=== PATIENT | male | born 1985 | race Caucasian/White ===

== ENCOUNTER 2018-01-05 08:32 | Inpatient (IN) | payer MEDICAID ==
[2018-01-05] VITALS (10 sets, daily range): BP systolic 94–114; BP diastolic 60–74; Ht 162.6 cm; Wt 62.1 kg
[~2018-01-05] VITALS: Ht 162.6 cm; Wt 62.1 kg
[2018-01-05] MEDS ORDERED: NOVOLOG100 U/M1 SC (08:52)
[2018-01-05] MEDS ORDERED: 70/30 INSULIN (08:53)
[2018-01-05] MEDS ORDERED: KLONOPIN0.5 MG PO (08:53)
[2018-01-05] MEDS ORDERED: ADDERALL 5 MG TA5 M1 PO (08:53)
[2018-01-05 09:15] LABS: BASOPHILS 0.8 % (0-2); EOSINOPHILS 1.8 % (0-7); HEMATOCRIT 51.5 % (42.0-54.0); HEMOGLOBIN 17.6 g/dL (13.5-17.5); IMMATURE GRANULOCYTES 1.8 % (0-5); MCH 31.3 pg (26.0-34.0); MCHC 34.2 g/dL (31.0-37.0); MCV 91.6 fL (80.0-100.0); MEAN PLATELET VOLUME 11.4 fL (7.4-10.4); MONOCYTES 9.5 % (2-11); NEUTROPHILS 52.1 % (40-80); RBC 5.62 10x6/uL (4.20-6.10); RDW 13.4 % (11.5-14.5); WBC 6.1 10x3/uL (4.8-10.8)
[2018-01-05 09:17] LABS: PLATELET COUNT 280 10x3/uL (130-400)
[2018-01-05 09:32] LABS: KETONE - SERUM SMALL mg/dL (NEGATIVE)
[2018-01-05 09:32] LABS: APPEARANCE CLEAR (CLEAR); BILIRUBIN NEGATIVE (NEGATIVE); COLOR STRAW (YELLOW); GLUCOSE 1000 mg/dL (NEGATIVE); KETONE LARGE mg/dL (NEGATIVE); NITRITE NEGATIVE (NEGATIVE); PROTEIN NEGATIVE (NEGATIVE); UROBILINOGEN NORMAL (NORMAL)
[2018-01-05 09:36] LABS: ALBUMIN 3.8 g/dL (3.4-5.0); ALKALINE PHOSPHATASE 131 U/L (46-116); ALT (SGPT) 28 U/L (10-68); CALC OSMOLALITY 282 mosm/kg (275-300); CALCIUM 8.6 mg/dL (8.5-10.1); CHLORIDE - SERUM 97 mmol/L (98-107); CREATININE - SERUM 1.5 mg/dL (0.6-1.3); GLUCOSE 348 mg/dL (74-106); POTASSIUM - SERUM 4.3 mmol/L (3.5-5.1); SODIUM 133 mmol/L (136-145); UREA NITROGEN 20 mg/dL (7-18); eGFR NON AFRICAN AMERICAN 58 mL/min (90-120)
[2018-01-05 09:42] LABS: UDS - AMPHET NEGATIVE QUAL (NEGATIVE); UDS - BARB NEGATIVE QUAL (NEGATIVE); UDS - BENZO NEGATIVE QUAL (NEGATIVE); UDS - COCAINE NEGATIVE QUAL (NEGATIVE); UDS - OPIATE NEGATIVE QUAL (NEGATIVE); UDS - PCP NEGATIVE QUAL (NEGATIVE); UDS - THC NEGATIVE QUAL (NEGATIVE)
[2018-01-05 14:22] LABS: CALCIUM 7.2 mg/dL (8.5-10.1); CHLORIDE - SERUM 105 mmol/L (98-107); SODIUM 136 mmol/L (136-145); UREA NITROGEN 16 mg/dL (7-18)
[2018-01-05 14:24] LABS: CALC OSMOLALITY 280 mosm/kg (275-300); CARBON DIOXIDE 23.3 mmol/L (21.0-32.0); GLUCOSE 241 mg/dL (74-106); POTASSIUM - SERUM 3.6 mmol/L (3.5-5.1); eGFR NON AFRICAN AMERICAN > 90 mL/min (90-120)
[2018-01-06] VITALS (11 sets, daily range): BP systolic 93–110; BP diastolic 61–77
== END 2018-01-06 12:57 | disposition home or self-care (01) | DRG 638 ==
LOC: D.ER 08:32 → D.EDHOLD 10:42 → D.ICU 11:03
PROVIDERS: Family Medicine; Internal Medicine Nephrology
DX: E10.10 Type 1 diabetes mellitus with ketoacidosis without coma (principal); N17.9 Acute kidney failure, unspecified; E87.1 Hypo-osmolality and hyponatremia; F90.9 Attention-deficit hyperactivity disorder, unspecified type; Z91.19 Patient's noncompliance with other medical treatment and regimen

== ENCOUNTER 2018-05-19 17:34 | Inpatient (IN) | payer MEDICAID ==
[~2018-05-19] VITALS: Ht 162.6 cm; Wt 59.0 kg
[~2018-05-19 17:34] MED LIST: 70/30 INSULIN; ADDERALL 5 MG TA5 M1 PO; KLONOPIN0.5 MG PO; NOVOLOG100 U/M1 SC
[2018-05-19 18:23] VITALS: BP 130/85
[2018-05-19 18:27] LABS: BASOPHILS 0.5 % (0-2); EOSINOPHILS 0 % (0-7); HEMATOCRIT 44.9 % (42.0-54.0); HEMOGLOBIN 15.6 g/dL (13.5-17.5); IMMATURE GRANULOCYTES 2.3 % (0-5); LYMPHOCYTES 8.4 % (15-50); MCH 30.7 pg (26.0-34.0); MCHC 34.7 g/dL (31.0-37.0); MCV 88.4 fL (80.0-100.0); MEAN PLATELET VOLUME 10.8 fL (7.4-10.4); MONOCYTES 3.1 % (2-11); NEUTROPHILS 85.7 % (40-80); RBC 5.08 10x6/uL (4.20-6.10); RDW 13.6 % (11.5-14.5); WBC 19.3 10x3/uL (4.8-10.8)
[2018-05-19 18:30] LABS: PLATELET COUNT 679 10x3/uL (130-400)
[2018-05-19 18:43] LABS: KETONE - SERUM LARGE mg/dL (NEGATIVE)
[2018-05-19 18:45] VITALS: BP 140/97
[2018-05-19 18:45] LABS: ALBUMIN 3.9 g/dL (3.4-5.0); ALKALINE PHOSPHATASE 191 U/L (46-116); ALT (SGPT) 104 U/L (10-68); BILIRUBIN - TOTAL 1.04 mg/dL (0.2-1.3); CALC OSMOLALITY 282 mosm/kg (275-300); CALCIUM 9.7 mg/dL (8.5-10.1); CARBON DIOXIDE 11.9 mmol/L (21.0-32.0); CHLORIDE - SERUM 89 mmol/L (98-107); CREATINE KINASE 27 UL (21-232); CREATININE - SERUM 1.8 mg/dL (0.6-1.3); LIPASE 50 U/L (73-393); POTASSIUM - SERUM 4.6 mmol/L (3.5-5.1); PRO BNP 105 pg/mL (0-125); PROTEIN - SERUM 8.8 g/dL (6.4-8.2); SODIUM 131 mmol/L (136-145); UREA NITROGEN 20 mg/dL (7-18); eGFR NON AFRICAN AMERICAN 47 mL/min (90-120)
[2018-05-19 18:48] LABS: GLUCOSE 407 mg/dL (74-106)
[2018-05-19 19:00] VITALS: BP 139/88
[2018-05-19 19:45] VITALS: BP 133/78
[2018-05-19 20:28] LABS: APPEARANCE CLEAR (CLEAR); BILIRUBIN NEGATIVE (NEGATIVE); COLOR YELLOW (YELLOW); GLUCOSE 1000 mg/dL (NEGATIVE); KETONE LARGE mg/dL (NEGATIVE); NITRITE NEGATIVE (NEGATIVE); PROTEIN TRACE mg/dL (NEGATIVE); UROBILINOGEN NORMAL (NORMAL)
[2018-05-19 20:30] LABS: BACTERIA FEW /hpf (NONE SEEN); RED CELLS - URINE NONE SEEN /hpf (0-5); WHITE CELLS - URINE NSEEN /hpf (0-5)
[2018-05-19 20:47] LABS: UDS - AMPHET NEGATIVE QUAL (NEGATIVE); UDS - BARB NEGATIVE QUAL (NEGATIVE); UDS - BENZO NEGATIVE QUAL (NEGATIVE); UDS - COCAINE NEGATIVE QUAL (NEGATIVE); UDS - OPIATE NEGATIVE QUAL (NEGATIVE); UDS - PCP NEGATIVE QUAL (NEGATIVE); UDS - THC NEGATIVE QUAL (NEGATIVE)
[2018-05-20] VITALS (11 sets, daily range): BP systolic 104–130; BP diastolic 54–81; BMI 22.3
--- NOTE | 2018-05-20 07:15 | NUR ---
REPORT HANDED OFF FROM PETE TURPIN. PT STABLE, CALL LIGHT WITHIN REACH, DENIES NEEDS, WILL CONTINUE TO MONITOR.
[2018-05-20 07:55] LABS: BASOPHILS 0.4 % (0-2); EOSINOPHILS 0.1 % (0-7); IMMATURE GRANULOCYTES 1.6 % (0-5); LYMPHOCYTES 16.9 % (15-50); MCH 30.6 pg (26.0-34.0); MCHC 34.6 g/dL (31.0-37.0); MCV 88.6 fL (80.0-100.0); MEAN PLATELET VOLUME 10.4 fL (7.4-10.4); MONOCYTES 6.4 % (2-11); NEUTROPHILS 74.6 % (40-80); RDW 13.8 % (11.5-14.5); WBC 17.7 10x3/uL (4.8-10.8)
[2018-05-20 08:25] LABS: HEMATOCRIT 34.1 % (42.0-54.0); HEMOGLOBIN 11.8 g/dL (13.5-17.5); PLATELET COUNT 519 10x3/uL (130-400); RBC 3.85 10x6/uL (4.20-6.10)
--- NOTE | 2018-05-20 08:26 | NUR ---
PT RESTING IN ROOM. RISE AND FALL OF CHEST NOTED. VS STABLE AND CONSISTANT WITH PT TREND SINCE ARRIVAL. CALL LIGHT WITHIN REACH, WILL CONTINUE TO MONITOR.
[2018-05-20 08:35] LABS: BILIRUBIN - TOTAL 0.7 mg/dL (0.2-1.3); CALCIUM 7.9 mg/dL (8.5-10.1)
[2018-05-20 08:37] LABS: ALBUMIN 2.6 g/dL (3.4-5.0); ANION GAP 19.2 mmol/L (8-16); CARBON DIOXIDE 17.3 mmol/L (21.0-32.0); CREATININE - SERUM 1.3 mg/dL (0.6-1.3); POTASSIUM - SERUM 3.5 mmol/L (3.5-5.1); PROTEIN - SERUM 6.1 g/dL (6.4-8.2)
--- NOTE | 2018-05-20 09:20 | NUR ---
PT STABLE, CALL LIGHT WITHIN REACH, URINAL PROVIDED, DENIES OTHER NEEDS WILL CONTINUE TO MONITOR.
--- NOTE | 2018-05-20 10:02 | NUR ---
POTASSIUM INFUSION COMPLETE AT THIS TIME. PT STABLE, CALL LIGHT WITHIN REACH, DENIES NEEDS WILL CONTINUE TO MONITOR.
[2018-05-20 11:32] LABS: ANION GAP 25.3 mmol/L (8-16); CARBON DIOXIDE 10.9 mmol/L (21.0-32.0)
[2018-05-20 11:33] LABS: POTASSIUM - SERUM 4.2 mmol/L (3.5-5.1)
--- NOTE | 2018-05-20 11:54 | NUR ---
SECOND POTASSIUM INFUSION COMPLETE AT THIS TIME. PT STABLE, CALL LIGHT WITHIN REACH, DENIES NEEDS, WILL CONTINUE TO MONITOR.
--- NOTE | 2018-05-20 13:07 | NUR ---
PT STABLE, CALL LIGHT WITHIN REACH, DENIES, NEEDS, WILL CONTINUE TO MONITOR.
--- NOTE | 2018-05-20 14:13 | NUR ---
PT STABLE, CALL LIGHT WITHIN REACH, DENIES NEEDS, WILL CONTINUE TO MONITOR.
--- NOTE | 2018-05-20 15:45 | NUR ---
PT STABLE, CALL LIGHT WITHIN REACH, DENIES NEEDS, WILL CONTINUE TO MONITOR.
--- NOTE | 2018-05-20 17:47 | NUR ---
PT STABLE, CALL LIGHT WITHIN REACH, DENIES NEEDS, WILL CONTINUE TO MONITOR. FSBS AT 1730 80. INSULIN HELD PER SLIDING SCALE.
--- NOTE | 2018-05-20 19:13 | NUR ---
PT REPORT HANDED OFF TO PETE NEWELL. PT STABLE, WILL CONTINUE TO MONITOR.
--- NOTE | 2018-05-20 19:33 | NUR ---
PATIENT APPEARS TO BE SLEEPING, AWAKES TO VERBAL SITMULI. NO NEEDS NOTED. UPDATED ON PLAN OF CARE AND DELAYS IN CARE. WILL CONTIUE TO MONITOR.
--- NOTE | 2018-05-20 20:59 | NUR ---
FSBS 221
[2018-05-21] VITALS (7 sets, daily range): BP systolic 110–125; BP diastolic 62–84; Ht 162.6 cm; Wt 59.0 kg
[2018-05-21 07:43] LABS: BASOPHILS 1.1 % (0-2); EOSINOPHILS 0.5 % (0-7); HEMATOCRIT 36.5 % (42.0-54.0); HEMOGLOBIN 12.1 g/dL (13.5-17.5); IMMATURE GRANULOCYTES 1.5 % (0-5); LYMPHOCYTES 21.8 % (15-50); MCHC 33.2 g/dL (31.0-37.0); MONOCYTES 4.4 % (2-11); NEUTROPHILS 70.7 % (40-80); PLATELET COUNT 428 10x3/uL (130-400); RBC 4.03 10x6/uL (4.20-6.10)
[2018-05-21 07:51] LABS: MCV 90.6 fL (80.0-100.0); WBC 10.1 10x3/uL (4.8-10.8)
[2018-05-21 07:58] LABS: ALBUMIN 2.5 g/dL (3.4-5.0); ALKALINE PHOSPHATASE 118 U/L (46-116); ALT (SGPT) 54 U/L (10-68); BILIRUBIN - TOTAL 1.31 mg/dL (0.2-1.3); CALCIUM 8.1 mg/dL (8.5-10.1); CHLORIDE - SERUM 100 mmol/L (98-107); CREATININE - SERUM 1.1 mg/dL (0.6-1.3); POTASSIUM - SERUM 3.9 mmol/L (3.5-5.1); PROTEIN - SERUM 5.8 g/dL (6.4-8.2); SODIUM 134 mmol/L (136-145); eGFR NON AFRICAN AMERICAN 83 mL/min (90-120)
--- NOTE | 2018-05-21 08:02 | NUR ---
RCVD PT FROM PM SHIFT. PT AAOX3. HR-RRR, PPP, BREATH SOUNDS CLEAR & UNLABORED X2, BOWEL SOUNDS ACTIVE X4. PIV NOTED TO RT FOREARM C/D/I WITHOUT ERYTHEMA OR EDEMA NOTED TO SITE. NS INFUSING AT 200ML/HR PER ORDERS. AJAY BANDAGE WRAPPED AROUND LT FOREARM. PT REPORTS SURGERY A WEEK AGO AND STATES HAS BEEN TAKING CARE OF IT HIMSELF. WILL NOT ALLOW RN TO UNWRAP OR ASSESS SITE. DR BAKER REPORTS WILL MAKE ROUNDS AT 1200 TO ASSESS IT. PT DENIES FURTHER NEEDS AT THIS TIME. BED LOW, WHEELS LOCKED, CALL LIGHT AND PHONE WITHIN REACH, SIDE RAILS UP X2.
[2018-05-21 08:09] LABS: CALC OSMOLALITY 280 mosm/kg (275-300); GLUCOSE 346 mg/dL (74-106); UREA NITROGEN 10 mg/dL (7-18)
[2018-05-21 08:10] LABS: CARBON DIOXIDE 8.8 mmol/L (21.0-32.0)
--- NOTE | 2018-05-21 10:01 | NUR ---
OPERATING SYSTEMS PROGRAMMER ON UNIT. ADV TECH OF NEEDS FOR MEDICATION DUE.
--- NOTE | 2018-05-21 10:15 | NUR ---
CURRENT NS INFUSION COMPLETE. OLD BAG DOWN, NEW BAG UP TO PRESENT TUBING SET TO INFUSE AT 200ML/HR
--- NOTE | 2018-05-21 10:27 | NUR ---
CURRENT NS INFUSION COMPLETE. OLD BAG DOWN, NEW BAG UP TO PRESENT TUBING, SET TO INFUSE AT 200ML/HR VIA ALARIS PUMP. PT DENIES NEED AT THIS TIME.
--- NOTE | 2018-05-21 11:30 | NUR ---
PHARMACY CALLED. ADV ON NEEDS FOR HUMULIN THAT WAS DUE AT 1100.
--- NOTE | 2018-05-21 11:36 | NUR ---
BICARB DRIP SET TO INFUSE PER ORDERS. SEE EMAR FOR ADMINISTRATION. PT LYING ON RT SIDE. DENIES NEEDS AT THIS TIME.
--- NOTE | 2018-05-21 11:36 | NUR ---
SODIUM BICARB HUNG AND SET TO INFUSE PER ORDERS. SEE EMAR FOR ADMINISTRATION. PT DENIES FURTHER NEEDS AT THIS TIME.
--- NOTE | 2018-05-21 13:00 | NUR ---
CREW DIRECTOR ON UNIT. INQUIRED ABOUT HUMULIN AND OTHER MEDS NEEDED. CREW DIRECTOR TAKES LIST OF MEDICATIONS WITH HER.
--- NOTE | 2018-05-21 13:45 | NUR ---
Eric LINDSEY RN CALLS PHARMACY FOR MEDICATIONS. JOSE WITH PHARMACY WILL CALL WHEN MEDS ARE READY.
--- NOTE | 2018-05-21 13:46 | NUR ---
DR BAKER IN ROOM ASSESSING PT. LT AC WOUND SHOWN TO THIS RN. V/O RCVD FOR NONSTICK DRESSING TO BE PLACED OVER SITE AND A CONSULT FOR WOUND CARE TO BE PLACED.
--- NOTE | 2018-05-21 13:52 | HP ---
PATIENT: STARR GARCIA MEDICAL RECORD: [id number] ACCOUNT: [id number] LOCATION:[facility] : 89 ADMISSION DATE: 05/20/18 PCP: No PCP HISTORY AND PHYSICAL EXAMINATION DATE OF ADMISSION: 05/19/2018 CHIEF COMPLAINT: Nausea, vomiting, and abdominal pain. HISTORY OF PRESENT ILLNESS: This is a 32-year-old type 1 diabetic, diagnosed approximately 10 years ago who presented to the Emergency Department complaining of nausea, vomiting, shortness of breath, and abdominal pain. Symptoms started a couple of days ago. He had a "surgery" on the left forearm at [facility] in [place] recently. The patient states he is homeless or basically staying with his sister right now. He does not have a primary care provider. In the ER, his white count was 19,000, his glucose was 407, his ABG did not show acidosis, his pH was 7.5. He did have large serum ketones. Urine drug screen was negative. He is admitted for hyperglycemia, nausea, vomiting, abdominal pain history, diabetes diagnosed approximately 10 years ago, history of anxiety and possibly ADHD. PAST SURGICAL HISTORY: None. HOME MEDICATIONS: Insulin 70/30, 30 units twice a day; Klonopin 0.5 mg once or twice a day. ALLERGIES: No known drug allergies. HABITS: He smokes. Denies any alcohol or drugs. SOCIAL HISTORY: Again, homeless, living with his sister right now. He does not work. He states he is trying to get disability for his diabetes. FAMILY HISTORY: Unknown. REVIEW OF SYSTEMS: GENERAL: No major weight changes. HEENT: No sinus or allergy problems. RESPIRATORY: No history of asthma or emphysema. CARDIAC: No history of heart trouble. GASTROINTESTINAL: Currently, abdominal pain, but no ongoing problems with diarrhea, constipation or heartburn. GENITOURINARY: No significant problems there. MUSCULOSKELETAL: No significant problems there. NEUROLOGIC: No seizures or migraines. PSYCHIATRIC: Has anxiety. PHYSICAL EXAMINATION: VITAL SIGNS: Temperature 99.7, pulse 101, respirations 14, blood pressure 120/78, O2 sat 98% on room air. GENERAL: He is awake and alert. He states his mouth is very dry. He is very tired. HEENT: Unremarkable. NECK: Supple. HEART: Regular rate and rhythm without murmur. HISTORY AND PHYSICAL [id number] STARR GARCIA LUNGS: Clear. ABDOMEN: Soft, nontender. No guarding, no rebound, no mass. EXTREMITIES: No edema. He has a dressing around the left forearm. LABORATORY DATA: Initially, basic metabolic panel showed sodium 131, potassium 4.6, chloride 89, CO2 11.4, BUN 20, creatinine 1.8, glucose 407, calcium 9.7. Lactic acid 2.7. Liver functions were okay. Lipase 50. ProBNP was fine. CBC with a white count of 19,300, hemoglobin 15.6, hematocrit 49. Serum ketones large. ABG: pH 7.54, pO2 125. Chest x-ray shows nothing acute. Urine drug screen is negative. Urinalysis is okay except 1000 mg/dL of glucose. ASSESSMENT: 1. Hyperglycemia in a type 1 diabetic. 2. Abdominal pain. 3. Nausea and vomiting. PLAN: IV fluids. He has been given insulin in the ER and his sugars are down to 71. His potassium is down to 3.5, we will follow his potassium with electrolytes every couple of hours. Continue IV fluids, monitor his glucose, other tests or procedures as warranted. TRANSINT:[id number] Voice Confirmation ID: [id number] DOCUMENT ID: [id number] MARI BAKER MD at 1352 CC: [id number] DICTATION DATE: 05/20/18 0857 CONGRESSIONAL AIDE: 05/20/18 1035 ADM IN [place] [address] [place] [address]
--- NOTE | 2018-05-21 14:00 | NUR ---
PHARMACY CALLED. OSEI ROWE ON NEEDS FOR MEDICATION/HUMULIN THAT WAS DUE AT 1100. SOLEDAD STATES WILL CHECK AND BRING MEDS OVER.
--- NOTE | 2018-05-21 15:11 | NUR ---
HUMULIN GIVEN PER SLIDING SCALE FOR FSBS OF 412. DR BAKER'S OFFICE CALLED TO REPORT FSBS. NO NEW ORDERS RCVD AT THIS TIME.
--- NOTE | 2018-05-21 16:01 | NUR ---
Pt has open wound (surgical) on left ac. It measures 3cm x 3.5cm x 0.5cm. The wound bed is red and granulation is noted around wound edges. There is no odor detected. No drainage but bleeds easily. He has been doing his own dressing changes using iodoform gauze. Recommend continuing the iodoform. Wound care will continue monitoring.
--- NOTE | 2018-05-21 17:24 | NUR ---
CURRENT BICARB INFUSION COMPLETE. OLD BAG DOWN, NEW BAG UP TO PRESENT TUBING. PT RESTING WITH EYES CLOSED. RESP EVEN & UNLABORED. NO NEEDS VOICED.
--- NOTE | 2018-05-21 18:39 | NUR ---
vancomycin hung and set to infuse per orders. pt requests & receives ice water. no further needs voiced.
--- NOTE | 2018-05-21 19:23 | NUR ---
PM ROUNDS MADE, PT AROUSES TO OPENING OF DOOR, INFORMED PT THAT I WILL BE BACK SHORTLY TO DO ASSESSMENT, PT VERBALIZES UNDERSTANDING, DENIES NEEDS OR PAIN AT THIS TIME, BED IN LOW POSITION, SIDE RAILS X 2, CALL LIGHT IN REACH
--- NOTE | 2018-05-21 20:15 | NUR ---
ASSESSMENT PER FLOW SHEET, VS OBTAINED, IV IN RIGHT FA INTACT WITH NO REDNESS OR EDEMA INFUSING NS WITH BICARB AT 200 ML/HR, SEE EMAR, PT REPORTS FLATUS, NO BM AND VOIDING WITH NO DIFFICULTY, ZOSYN HUNG IVPB PER MD ORDERS, SEE EMAR, PT INQUIRES ABOUT HIS KLONIPIN, STATES "I REALLY NEED TO HAVE THAT BECAUSE I HAVE ANXIETY REALLY BAD", INFORMED PT THAT I WILL CONTACT THE DOCTOR AND SEE WHAT I CAN DO, PT VERBALIZES UNDERSTANDING, STATES "THANK YOU", PT DENIES FURTHER NEEDS OR PAIN AT THIS TIME, BED IN LOW POSITION, SIDE RAILS X 2, CALL LIGHT IN REACH
--- NOTE | 2018-05-21 20:27 | NUR ---
LEFT MESSAGE WITH ANSWERING SERVICE TO HAVE SHOULDER PUNCHER DOCTOR CALL UNIT
--- NOTE | 2018-05-21 20:42 | NUR ---
DR SAUCEDA CALLS UNIT, REPORT OF PT'S HOME MED FOR KLONIPIN, ORDERS RECEIVED, VERIFIED, AND READ BACK
--- NOTE | 2018-05-21 21:22 | NUR ---
OBTAINED FSBS, PT INFORMED OF KLONIPIN ORDER, INFORMED PT THAT I WILL ADM IT SOON I RECEIVE IT FROM THE PHARMACY, PT VERBALIZES UNDERSTANDING
--- NOTE | 2018-05-21 21:30 | NUR ---
ADM INSULIN PER MD ORDERS TO RIGHT ARM, INSULIN VERIFIED PER THIS RN AND EDI HERNANDEZ, RN, SNACK PROVIDED
--- NOTE | 2018-05-21 21:58 | NUR ---
ADM LANA PER MD ORDERS, SEE EMAR
--- NOTE | 2018-05-21 23:58 | NUR ---
PT PEDIATRICIAN LIGHT, PT REQUESTED AND SERVED SUGAR FREE JELLO AND POPSICLE, VS OBTAINED, DENIES FURTHER NEEDS OR PAIN
--- NOTE | 2018-05-22 00:30 | NUR ---
PT REFRESH TECHNICIAN LIGHT, REQUESTED AND SERVED SANDWICH TRAY PER EDI HERNANDEZ RN
--- NOTE | 2018-05-22 01:35 | NUR ---
IV BEEPING, THIS RN TO ROOM, VTBI ADJ, PT DENIES NEEDS
[2018-05-22 03:31] VITALS: BP 111/68
--- NOTE | 2018-05-22 03:31 | NUR ---
PT RESTING WITH EYES CLOSED, AROUSES TO SOFT VERBAL STIMULATION, OBTAINED FSBS
--- NOTE | 2018-05-22 03:36 | NUR ---
THIS RN AND EDI HERNANDEZ, PETE VERIFIED INSULIN, PT REFUSES 12 UNITS, STATES "I ONLY WANT 8 UNITS", ADM 8 UNITS PER PT'S REQUEST, SNACK PROVIDED, PT DENIES FURTHER NEEDS OR PAIN, BED IN LOW POSITION, SIDE RAILS X 2, CALL LIGHT IN REACH
--- NOTE | 2018-05-22 05:20 | NUR ---
NEW BAG OF SOD BICARB HUNG PER MD ORDERS, SEE EMAR, PUMPS CLEARED, PT DENIES NEEDS OR PAIN AT THIS TIME
[2018-05-22 06:38] LABS: BASOPHILS 1.4 % (0-2); EOSINOPHILS 1.2 % (0-7); HEMOGLOBIN 11.2 g/dL (13.5-17.5); IMMATURE GRANULOCYTES 0.7 % (0-5); MCH 30.7 pg (26.0-34.0); MCHC 33.9 g/dL (31.0-37.0); MCV 90.4 fL (80.0-100.0); MEAN PLATELET VOLUME 11.1 fL (7.4-10.4); MONOCYTES 7.2 % (2-11); NEUTROPHILS 66.5 % (40-80); RBC 3.65 10x6/uL (4.20-6.10); RDW 13.6 % (11.5-14.5); WBC 8.3 10x3/uL (4.8-10.8)
[2018-05-22 06:39] LABS: PLATELET COUNT 309 10x3/uL (130-400)
[2018-05-22 06:47] LABS: ALBUMIN 2.2 g/dL (3.4-5.0); ALKALINE PHOSPHATASE 103 U/L (46-116); ALT (SGPT) 42 U/L (10-68); BILIRUBIN - TOTAL 1.29 mg/dL (0.2-1.3); CALCIUM 7.8 mg/dL (8.5-10.1); CHLORIDE - SERUM 100 mmol/L (98-107); CREATININE - SERUM 1.2 mg/dL (0.6-1.3); PROTEIN - SERUM 5.1 g/dL (6.4-8.2); SODIUM 138 mmol/L (136-145); UREA NITROGEN 9 mg/dL (7-18); eGFR NON AFRICAN AMERICAN 75 mL/min (90-120)
[2018-05-22 06:49] LABS: CALC OSMOLALITY 281 mosm/kg (275-300); CARBON DIOXIDE 24.3 mmol/L (21.0-32.0); GLUCOSE 229 mg/dL (74-106); POTASSIUM - SERUM 3.3 mmol/L (3.5-5.1)
--- NOTE | 2018-05-22 08:08 | NUR ---
ZOSYN GIVEN PER ORDERS. SEE EMAR FOR ADMNISTRATION. PT DENIES PAIN OR NEEDS.
[2018-05-22 08:10] VITALS: BP 118/73
--- NOTE | 2018-05-22 08:10 | NUR ---
SHIFT ASSESSMENT COMPLETED AT THIS TIME. PT IS AAOX3, HR-RRR, PPP, BREATH SOUNDS CLEAR & UNLABORED X2, BOWEL SOUNDS ACTIVE X4. PIV TO RT FOREARM PATENT WITH DRESSING C/D/I. WOUND TO LT AC WITH AJAY BANDAGE COVERING IT C/D/I. PT DENIES ANY PAIN OR NEEDS AT THIS TIME. BED LOW, WHEELS LOCKED, CALL LIGHT AND PHONE WITHIN REACH, SIDE RAILS UP X2.
--- NOTE | 2018-05-22 09:30 | NUR ---
SCHEDULED MEDS GIVEN AT THIS TIME. 20 U HUMULIN GIVEN FOR FSBS OF 337. SEE EMAR FOR ADMINISTRATION. ICE WATER PROVIDED PER PT REQUEST. PT DENIES FURTHER NEEDS.
--- NOTE | 2018-05-22 10:24 | NUR ---
PT REQUESTS AND RECEIVES DARLENE CRACKERS, PEANUT BUTTER AND ICE WATER. ALL PROVIDED. PT DENIES FURTHER NEEDS AT THIS TIME.
--- NOTE | 2018-05-22 11:02 | NUR ---
PT AMB IN [place]. DENIES PAIN OR NEEDS.
[2018-05-22 12:15] VITALS: BP 102/69
--- NOTE | 2018-05-22 12:21 | NUR ---
CURRENT SODIUM BICARB INFUSION COMPLETE. OLD BAG DOWN, NEW BAG UP TO PRESENT TUBING AND SET TO INFUSE AT 200ML/HR PER ORDERS. PT DENIES PAIN OR FURTHER NEEDS.
--- NOTE | 2018-05-22 13:39 | NUR ---
DR BAKER ON UNIT. NEW ORDERS RCVD. DR BAKER STATES PT MAY D/C HOME TOMORROW MORNING DEPENDING ON FSBS RESULTS UP UNTIL THEN.
--- NOTE | 2018-05-22 13:51 | NUR ---
ZOSYN SET TO INFUSE PER ORDERS. SEE EMAR FOR ADMINISTRATION. SUGAR FREE JELLO ALSO PROVIDED PER REQUEST. NO FURTHER NEEDS VOICED AT THIS TIME.
--- NOTE | 2018-05-22 14:01 | NUR ---
pharmacy called and informed of need for novalin per md orders.
--- NOTE | 2018-05-22 14:32 | NUR ---
NOVOLIN 30 UNITS GIVEN PER ORDERS IN RT ARM AT THIS TIME. PT TOLERATED WELL. FSBS RESULTED. SUGAR FREE JELLO PROVIDED PER PT REQUEST. NO FURTHER NEEDS VOICED.
--- NOTE | 2018-05-22 16:26 | NUR ---
12 U HUMULIN GIVEN PER ORDERS FOR FSBS OF 205. PT TOLERATED WELL. DRESSING CHANGED ON WOUND AT LT AC. PT TOLERATED WELL. DENIES NEEDS OR C/O AT THIS TIME.
--- NOTE | 2018-05-22 17:25 | NUR ---
PT AMB IN [place] REQUESTING KLONOPIN. ADV PT THAT IT IS ORDERED FOR BEDTIME. PT VERBALIZES UNDERSTANDING AND DENIES FURTHER NEEDS.
--- NOTE | 2018-05-22 18:23 | NUR ---
CURRENT BICARB INFUSION COMPLETE. OLD BAG DOWN, NEW BAG UP TO PRESENT TUBING SET TO INFUSE AT 200ML/HR VIA ALARIS PUMP PER MD ORDERS. SANDWICH TRAY PROVIDED PER REQUEST. NO FURTHER NEEDS VOICED AT THIS TIME.
--- NOTE | 2018-05-22 19:08 | NUR ---
REPORT GIVEN TO ONCOMING SENIOR TRAINING AND DEVELOPMENT REP NURSE.
--- NOTE | 2018-05-22 19:20 | NUR ---
LYING IN BED. ALERT AND ORIENTED X4. RESP EVEN AND NONLABORED. DENIES PAIN. DRSG NOTED TO LT AC IS C/D/I. NO EDEMA NOTED. BICARB INFUSING @ 200 ML/HR IN RT FOREARM WITHOUT DIFF. REPORTS DIARRHEA ONCE TODAY. AMBULATORY. NO DISTRESS. SR ELEVATED X2. CL IN REACH.
[2018-05-22 19:45] VITALS: BP 105/66
--- NOTE | 2018-05-22 23:41 | NUR ---
LYING IN BED. NO DISTRESS. RESP EVEN AND NONLABORED. DENIES PAIN. BICARB DC/D AND STARTED NS @ 30 ML/HR. CL IN REACH.
[2018-05-22 23:49] VITALS: BP 105/66
[2018-05-23 03:55] VITALS: BP 116/72
--- NOTE | 2018-05-23 04:30 | NUR ---
FSBS SPOT CHECKED AT PTS REQUEST AND WAS 176. PT WORRIED ABOUT GLUCOSE DROPPING.
[2018-05-23 07:19] LABS: ALBUMIN 2.3 g/dL (3.4-5.0); ALKALINE PHOSPHATASE 89 U/L (46-116); ALT (SGPT) 42 U/L (10-68); BASOPHILS 3.3 % (0-2); BILIRUBIN - TOTAL 0.35 mg/dL (0.2-1.3); CALCIUM 8.4 mg/dL (8.5-10.1); CHLORIDE - SERUM 105 mmol/L (98-107); EOSINOPHILS 2.1 % (0-7); HEMATOCRIT 34.2 % (42.0-54.0); HEMOGLOBIN 11.7 g/dL (13.5-17.5); IMMATURE GRANULOCYTES 1.2 % (0-5); LYMPHOCYTES 45.9 % (15-50); MCH 30.4 pg (26.0-34.0); MCHC 34.2 g/dL (31.0-37.0); MCV 88.8 fL (80.0-100.0); MEAN PLATELET VOLUME 10.8 fL (7.4-10.4); NEUTROPHILS 40.5 % (40-80); PLATELET COUNT 319 10x3/uL (130-400); PROTEIN - SERUM 5.5 g/dL (6.4-8.2); RBC 3.85 10x6/uL (4.20-6.10); RDW 13.5 % (11.5-14.5); SODIUM 145 mmol/L (136-145); UREA NITROGEN 9 mg/dL (7-18); WBC 5.2 10x3/uL (4.8-10.8)
[2018-05-23 07:26] LABS: CALC OSMOLALITY 286 mosm/kg (275-300); CARBON DIOXIDE 31.2 mmol/L (21.0-32.0); CREATININE - SERUM 0.7 mg/dL (0.6-1.3); GLUCOSE 82 mg/dL (74-106); eGFR NON AFRICAN AMERICAN > 90 mL/min (90-120)
[2018-05-23 07:27] LABS: POTASSIUM - SERUM 2.5 mmol/L (3.5-5.1)
[2018-05-23 07:58] VITALS: BP 106/79
--- NOTE | 2018-05-23 08:11 | NUR ---
AM ASSESSMENT COMPLETED CHARTED ON FLOWSHEET, DENIES PAIN OR DISCOMFORT AT THIS TIME. SITTING UP IN BED PREPARING TO EAT REGULAR DIET. DENIES NEEDS AT THIS TIME. CALL LIGHT AND PHONE IN REACH WITH SIDE RAILS UP X 2. ASKED FOR LIGHTS TO BE TURNED OFF AND DOOR CLOSED.
--- NOTE | 2018-05-23 09:00 | NUR ---
FSBS OF 354, 24UNITS HUMLIN GIVEN PER SLIDING SCALE, GIVEN TO RIGHT UPPER ARM. ALSO GIVEN AM DOSE OF NOVALOG 30UNITS TO LEFT UPPER ARM. TOLERATES WELL
[2018-05-23] MEDS ORDERED: DOXYCYCLINE HY100 M2 PO (09:16)
--- NOTE | 2018-05-23 09:30 | NUR ---
PT PROVIDED WITH CHELO FUENTES AND DARLENE LUJAN PER REQUEST. DENIES PAIN OR DISCOMFORT AND NO OTHER NEEDS AT THIS TIME.
--- NOTE | 2018-05-23 11:12 | NUR ---
CASE MANAGMENT AT BEDSIDE AT THIS TIME.
--- NOTE | 2018-05-23 11:18 | NUR ---
IV DISCONTINUED, CATH REMOVED AND NOTED TO BE INTACT. PER PT HIS RIDE SHOULD BE HERE AROUND 1-130 PM TODAY.
--- NOTE | 2018-05-23 11:22 | MORECARE ---
CASE MANAGEMENT DISCHARGE SUMMARY PATIENT: STARR GARCIA UNIT: [id number] ADM DATE: 05/20/18 AGE: 32 : 87 SEX: M ROOM/BED: D.1218 AUTHOR: WINSTON MORGAN PHYSICIAN: REFERRING PHYSICIAN: MARI BAKER MD DATE OF SERVICE: 05/23/18 Discharge Plan Patient Name: STARR GARCIA Facility: [facility]:[place] : 1985 Planned Disposition: Home Anticipated Discharge Date: 05/23/18 Discharge Date: Expected LOS: 3 Initial Reviewer: [email or web address] Initial Review Date: 05/23/2018 Generated: 05/23/18 12:22 pm Patient Name: STARR GARCIA Page 11622 at 1122 All edits/amendments must be made on the electronic document DICTATION DATE: 05/23/181121 VAC PRESS OPERATOR: PHANI 05/23/18 112 RPT#: [id number] DC DATE: STATUS: ADM IN [facility] [address] [place] [address] END OF REPORT
--- NOTE | 2018-05-23 11:29 | MORECARE ---
CASE MANAGEMENT DISCHARGE SUMMARY PATIENT: STARR GARCIA UNIT: [id number] ADM DATE: 05/20/18 AGE: 32 : 87 SEX: M ROOM/BED: D.1218 AUTHOR: WINSTON MORGAN PHYSICIAN: REFERRING PHYSICIAN: MARI BAKER MD DATE OF SERVICE: 05/23/18 Discharge Plan Patient Name: STARR GARCIA Facility: [facility]:[place] : 1985 Planned Disposition: Home Anticipated Discharge Date: 05/23/18 Discharge Date: Expected LOS: 3 Initial Reviewer: [email or web address] Initial Review Date: 05/23/2018 Generated: 05/23/18 12:29 pm DCPIA - Discharge Planning Initial Assessment Updated by [email or web address]: Marah Boyle on 05/23/18 11:25 am * Is the patient Alert and Oriented? Yes * How many steps to enter\exit or inside your home? 3 w/rail * PCP None Was Dr. Gates. Working on changing to Dr. Morales. * Pharmacy [facility] [address] * Preadmission Environment Home with Family * ADLs Independent * Equipment Glucometer * List name and contact numbers for known caregivers / representatives who currently or will assist patient after discharge: Diana Arriaga, mother, * Verbal permission to speak to the caregivers and representatives has been obtained from the patient. N/A * Community resources currently utilized None * Additional services required to return to the preadmission environment? Yes * Can the patient safely return to the preadmission environment? Yes * Has this patient been hospitalized within the prior 30 days at any hospital? Yes Last DP export: 05/23/18 10:22 a Patient Name: STARR GARCIA Page 13042 at 1129 All edits/amendments must be made on the electronic document DICTATION DATE: 05/23/181128 DIRECTOR OF COMPENSATION: PHANI 05/23/181128 RPT#: [id number] DC DATE: STATUS: ADM IN [facility] [address] [place] [address] END OF REPORT
--- NOTE | 2018-05-23 11:37 | MORECARE ---
CASE MANAGEMENT DISCHARGE SUMMARY PATIENT: STARR GARCIA UNIT: [id number] ADM DATE: 05/20/18 AGE: 32 : 87 SEX: M ROOM/BED: D.1218 AUTHOR: EDDIE,DOC PHYSICIAN: REFERRING PHYSICIAN: MARI BAKER MD DATE OF SERVICE: 05/23/18 Discharge Plan Patient Name: STARR GARCIA Facility: [facility]:[place] : 1985 Planned Disposition: Home Anticipated Discharge Date: 05/23/18 Discharge Date: Expected LOS: 3 Initial Reviewer: [email or web address] Initial Review Date: 05/23/2018 Generated: 05/23/18 12:37 pm Comments DCP- Discharge Planning Updated by [email or web address]: Marah Boyle on 05/23/18 10:[address] Patient Name: STARR GARCIA Admission Status: ER Accout number: [id number] Admission Date: 05-20-2018 : 1985 Admission Diagnosis: Attending: MARI BAKER Current LOS: 3 Anticipated DC Date: 05-23-2018 Planned Disposition: Home Primary Insurance: MEDICAID [place] Discharge Planning Comments: CM met with patient about discharge planning / needs. Patient states he plans to discharge to his sister's house here in [place] (unable to recall address when asked by CM). States his mom, Diana Arriaga ([phone]) will transport him home upon discharge. Denies need for home health or other community resource needs. States home environment is safe. Denies any discharge needs or concerns at this time. CM will continue to follow and assist as needed with discharge planning / needs. Dairy Chemist: Marah Boyle DCPIA - Discharge Planning Initial Assessment Updated by [email or web address]: Marah Boyle on 05/23/18 11:25 am * Is the patient Alert and Oriented? Yes * How many steps to enter\exit or inside your home? 3 w/rail * PCP None Was Dr. Gates. Working on changing to Dr. Morales. * [facility] [address] * Preadmission Environment Home with Family * ADLs Independent * Equipment Glucometer * List name and contact numbers for known caregivers / representatives who currently or will assist patient after discharge: Diana Arriaga, mother, * Verbal permission to speak to the caregivers and representatives has been obtained from the patient. N/A * Community resources currently utilized None * Additional services required to return to the preadmission environment? Yes * Can the patient safely return to the preadmission environment? Yes * Has this patient been hospitalized within the prior 30 days at any hospital? Yes Last DP export: 05/23/18 10:29 a Patient Name: STARR GARCIA Page 35890 at 1137 All edits/amendments must be made on the electronic document DICTATION DATE: 05/23/181136 SOLAR PHOTOVOLTAIC CREW LEAD: PHANI 05/23/181136 RPT#: [id number] DC DATE: STATUS: ADM IN [facility] [address] [place] [address] END OF REPORT
--- NOTE | 2018-05-23 12:45 | NUR ---
VERBAL AND WRITTEN DISCHARGE INSTRUCTIONS GONE OVER AT BEDSIDE. PT STATES UNDERSTANDING AND DENIES ANY QUESTIONS OR CONCERNS.
--- NOTE | 2018-05-23 13:00 | NUR ---
TAKEN TO ER ENTRANCE BY WHEELCHAIR, HOME WITH FAMILY BY PRIVATE CAR.
--- NOTE | 2018-05-23 16:42 | MORECARE ---
CASE MANAGEMENT DISCHARGE SUMMARY PATIENT: STARR GARCIA UNIT: [id number] ADM DATE: 05/20/18 AGE: 32 : 89 SEX: M ROOM/BED: D.1218 AUTHOR: WINSTON MORGAN PHYSICIAN: REFERRING PHYSICIAN: MARI BAKER MD DATE OF SERVICE: 05/23/18 Discharge Plan Patient Name: STARR GARCIA Facility: [facility]:[place] : 1985 Planned Disposition: Home Anticipated Discharge Date: 05/23/18 Discharge Date: 05/23/2018 Expected LOS: 3 Initial Reviewer: [email or web address] Initial Review Date: 05/23/2018 Generated: 05/23/18 5:42 pm Comments DCP- Discharge Planning Updated by [email or web address]: Marah Boyle on 05/23/18 10:[address] Patient Name: STARR GARCIA Admission Status: ER Accout number: [id number] Admission Date: 05-20-2018 : 1985 Admission Diagnosis: Attending: MARI BAKER Current LOS: 3 Anticipated DC Date: 05-23-2018 Planned Disposition: Home Primary Insurance: MEDICAID [place] Discharge Planning Comments: CM met with patient about discharge planning / needs. Patient states he plans to discharge to his sister's house here in [place] (unable to recall address when asked by CM). States his mom, Diana Arriaga ([phone]) will transport him home upon discharge. Denies need for home health or other community resource needs. States home environment is safe. Denies any discharge needs or concerns at this time. CM will continue to follow and assist as needed with discharge planning / needs. Training Lead: Marah Boyle DCPIA - Discharge Planning Initial Assessment Updated by [email or web address]: Marah Boyle on 05/23/18 11:25 am * Is the patient Alert and Oriented? Yes * How many steps to enter\exit or inside your home? 3 w/rail * PCP None Was Dr. Gates. Working on changing to Dr. Morales. * Pharmacy [facility] [address] * Preadmission Environment Home with Family * ADLs Independent * Equipment Glucometer * List name and contact numbers for known caregivers / representatives who currently or will assist patient after discharge: Diana Arriaga, mother, * Verbal permission to speak to the caregivers and representatives has been obtained from the patient. N/A * Community resources currently utilized None * Additional services required to return to the preadmission environment? Yes * Can the patient safely return to the preadmission environment? Yes * Has this patient been hospitalized within the prior 30 days at any hospital? Yes Last DP export: 05/23/18 10:37 a Patient Name: STARR GARCIA Page 07255 at 1642 All edits/amendments must be made on the electronic document DICTATION DATE: 05/23/181641 POLICE SURGEON: PHANI 05/23/181641 RPT#: [id number] DC DATE:05/23/18 STATUS: DIS IN [facility] [address] [place] [address] END OF REPORT
== END 2018-05-23 13:00 | disposition home or self-care (01) | DRG 638 ==
LOC: D.ER 17:34 → D.EDHOLD 23:02 → OBSVTIME 23:02 → D.EDHOLD 05-20 14:43 → D.WS 05-20 14:43
PROVIDERS: Emergency Medicine; Family Medicine; ADMIT Family Medicine
DX: E10.10 Type 1 diabetes mellitus with ketoacidosis without coma (principal); N17.9 Acute kidney failure, unspecified; Z79.4 Long term (current) use of insulin; E10.65 Type 1 diabetes mellitus with hyperglycemia; S41.102D Unspecified open wound of left upper arm, subsequent encounter; X58.XXXD Exposure to other specified factors, subsequent encounter

== ENCOUNTER 2018-06-13 09:55 | Inpatient (IN) | payer MEDICAID ==
[2018-06-13] VITALS (14 sets, daily range): BP systolic 109–161; BP diastolic 55–91; BMI 24.0
[~2018-06-13] VITALS: Ht 162.6 cm; Wt 56.5 kg
[~2018-06-13 09:55] MED LIST changes: -70/30 INSULIN; +DOXYCYCLINE HY100 M2 PO; +HUMULIN 70100 UNIT/1 SC
[2018-06-13 10:20] LABS: HEMATOCRIT 42.5 % (42.0-54.0); HEMOGLOBIN 14.1 g/dL (13.5-17.5); LYMPHOCYTES 20.9 % (15-50); MCH 31.3 pg (26.0-34.0); MCHC 33.2 g/dL (31.0-37.0); MCV 94.4 fL (80.0-100.0); MEAN PLATELET VOLUME 10.9 fL (7.4-10.4); NEUTROPHILS 66.5 % (40-80); PLATELET COUNT 327 10x3/uL (130-400); RDW 14.4 % (11.5-14.5); WBC 11.2 10x3/uL (4.8-10.8)
[2018-06-13 10:28] LABS: UDS - AMPHET POSITIVE QUAL (NEGATIVE); UDS - BARB NEGATIVE QUAL (NEGATIVE); UDS - BENZO NEGATIVE QUAL (NEGATIVE); UDS - COCAINE NEGATIVE QUAL (NEGATIVE); UDS - OPIATE NEGATIVE QUAL (NEGATIVE); UDS - PCP NEGATIVE QUAL (NEGATIVE); UDS - THC NEGATIVE QUAL (NEGATIVE)
[2018-06-13 10:30] LABS: APPEARANCE CLEAR (CLEAR); BILIRUBIN NEGATIVE (NEGATIVE); COLOR STRAW (YELLOW); GLUCOSE 1000 mg/dL (NEGATIVE); KETONE LARGE mg/dL (NEGATIVE); NITRITE NEGATIVE (NEGATIVE); PROTEIN NEGATIVE (NEGATIVE); SPECIFIC GRAVITY 1.025 (1.005-1.020); UROBILINOGEN NORMAL (NORMAL)
[2018-06-13 10:32] LABS: KETONE - SERUM LARGE mg/dL (NEGATIVE)
[2018-06-13 10:36] LABS: ALBUMIN 3.2 g/dL (3.4-5.0); ALKALINE PHOSPHATASE 183 U/L (46-116); ALT (SGPT) 69 U/L (10-68); BILIRUBIN - TOTAL 0.71 mg/dL (0.2-1.3); CALCIUM 9.6 mg/dL (8.5-10.1); CHLORIDE - SERUM 96 mmol/L (98-107); CREATININE - SERUM 1.4 mg/dL (0.6-1.3); MAGNESIUM - SERUM 2.2 mg/dL (1.8-2.4); POTASSIUM - SERUM 5.4 mmol/L (3.5-5.1); PROTEIN - SERUM 6.7 g/dL (6.4-8.2); SODIUM 135 mmol/L (136-145); UREA NITROGEN 19 mg/dL (7-18); eGFR NON AFRICAN AMERICAN 63 mL/min (90-120)
[2018-06-13 10:44] LABS: CALC OSMOLALITY 306 mosm/kg (275-300)
[2018-06-13 10:48] LABS: GLUCOSE 726 mg/dL (74-106)
[2018-06-13 10:49] LABS: CARBON DIOXIDE < 5.0 mmol/L (21.0-32.0)
[2018-06-13 12:11] LABS: CALCIUM 8.2 mg/dL (8.5-10.1); CHLORIDE - SERUM 105 mmol/L (98-107); CREATININE - SERUM 1.5 mg/dL (0.6-1.3); SODIUM 144 mmol/L (136-145); UREA NITROGEN 18 mg/dL (7-18); eGFR NON AFRICAN AMERICAN 58 mL/min (90-120)
[2018-06-13 12:14] LABS: CALC OSMOLALITY 317 mosm/kg (275-300); POTASSIUM - SERUM 3.9 mmol/L (3.5-5.1)
[2018-06-13 12:16] LABS: CARBON DIOXIDE < 5.0 mmol/L (21.0-32.0); GLUCOSE 623 mg/dL (74-106)
[2018-06-13 16:39] LABS: ANION GAP 33.7 mmol/L (8-16); CALCIUM 8.1 mg/dL (8.5-10.1); CREATININE - SERUM 1.4 mg/dL (0.6-1.3); POTASSIUM - SERUM 3.6 mmol/L (3.5-5.1)
[2018-06-13 16:41] LABS: CARBON DIOXIDE 4.9 mmol/L (21.0-32.0)
[2018-06-13 18:34] LABS: AMYLASE - SERUM 77 U/L (25-115); LIPASE 515 U/L (73-393)
[2018-06-13 20:27] LABS: CALC OSMOLALITY 293 mosm/kg (275-300); CALCIUM 7.4 mg/dL (8.5-10.1); CARBON DIOXIDE 10.9 mmol/L (21.0-32.0); CHLORIDE - SERUM 114 mmol/L (98-107); CREATININE - SERUM 1.2 mg/dL (0.6-1.3); MAGNESIUM - SERUM 1.8 mg/dL (1.8-2.4); PHOSPHOROUS 1.7 mg/dL (2.5-4.9); POTASSIUM - SERUM 3.7 mmol/L (3.5-5.1); SODIUM 146 mmol/L (136-145); UREA NITROGEN 12 mg/dL (7-18); eGFR NON AFRICAN AMERICAN 75 mL/min (90-120)
[2018-06-13 20:28] LABS: GLUCOSE 145 mg/dL (74-106)
[2018-06-14] VITALS (24 sets, daily range): BP systolic 110–133; BP diastolic 70–95; Ht 162.6 cm; Wt 56.5 kg
[2018-06-14 00:56] LABS: BASOPHILS 0.2 % (0-2); EOSINOPHILS 0.2 % (0-7); HEMATOCRIT 37.4 % (42.0-54.0); HEMOGLOBIN 12.5 g/dL (13.5-17.5); LYMPHOCYTES 14.5 % (15-50); MCH 30.6 pg (26.0-34.0); MCHC 33.4 g/dL (31.0-37.0); MCV 91.7 fL (80.0-100.0); MEAN PLATELET VOLUME 10.5 fL (7.4-10.4); MONOCYTES 7.8 % (2-11); NEUTROPHILS 76.3 % (40-80); PLATELET COUNT 271 10x3/uL (130-400); RBC 4.08 10x6/uL (4.20-6.10); RDW 14.7 % (11.5-14.5); WBC 9.7 10x3/uL (4.8-10.8)
[2018-06-14 01:08] LABS: PHOSPHOROUS 2.2 mg/dL (2.5-4.9)
[2018-06-14 01:18] LABS: ALBUMIN 2.4 g/dL (3.4-5.0); ALKALINE PHOSPHATASE 129 U/L (46-116); ALT (SGPT) 51 U/L (10-68); BILIRUBIN - TOTAL 0.51 mg/dL (0.2-1.3); CALC OSMOLALITY 292 mosm/kg (275-300); CALCIUM 7.4 mg/dL (8.5-10.1); CARBON DIOXIDE 14.4 mmol/L (21.0-32.0); CHLORIDE - SERUM 115 mmol/L (98-107); CREATININE - SERUM 1.1 mg/dL (0.6-1.3); GLUCOSE 148 mg/dL (74-106); POTASSIUM - SERUM 3.4 mmol/L (3.5-5.1); PROTEIN - SERUM 5.3 g/dL (6.4-8.2); SODIUM 146 mmol/L (136-145); UREA NITROGEN 11 mg/dL (7-18); eGFR NON AFRICAN AMERICAN 83 mL/min (90-120)
[2018-06-14 05:29] LABS: BASOPHILS 0.1 % (0-2); EOSINOPHILS 0.7 % (0-7); HEMATOCRIT 38.4 % (42.0-54.0); HEMOGLOBIN 12.7 g/dL (13.5-17.5); IMMATURE GRANULOCYTES 0.6 % (0-5); LYMPHOCYTES 13.6 % (15-50); MCH 30.4 pg (26.0-34.0); MCHC 33.1 g/dL (31.0-37.0); MCV 91.9 fL (80.0-100.0); MEAN PLATELET VOLUME 10.4 fL (7.4-10.4); MONOCYTES 6.9 % (2-11); NEUTROPHILS 78.1 % (40-80); PLATELET COUNT 264 10x3/uL (130-400); RBC 4.18 10x6/uL (4.20-6.10); RDW 14.8 % (11.5-14.5); WBC 10.5 10x3/uL (4.8-10.8)
[2018-06-14 05:42] LABS: ALBUMIN 2.4 g/dL (3.4-5.0); ALKALINE PHOSPHATASE 133 U/L (46-116); ALT (SGPT) 47 U/L (10-68); BILIRUBIN - TOTAL 0.56 mg/dL (0.2-1.3); CALC OSMOLALITY 289 mosm/kg (275-300); CALCIUM 7.2 mg/dL (8.5-10.1); CARBON DIOXIDE 15.3 mmol/L (21.0-32.0); CHLORIDE - SERUM 113 mmol/L (98-107); GLUCOSE 168 mg/dL (74-106); MAGNESIUM - SERUM 2.1 mg/dL (1.8-2.4); POTASSIUM - SERUM 3.5 mmol/L (3.5-5.1); PROTEIN - SERUM 5.1 g/dL (6.4-8.2); SODIUM 144 mmol/L (136-145); UREA NITROGEN 10 mg/dL (7-18); eGFR NON AFRICAN AMERICAN > 90 mL/min (90-120)
[2018-06-14 09:24] LABS: CALC OSMOLALITY 283 mosm/kg (275-300); CALCIUM 7.3 mg/dL (8.5-10.1); CARBON DIOXIDE 16.3 mmol/L (21.0-32.0); CHLORIDE - SERUM 112 mmol/L (98-107); GLUCOSE 133 mg/dL (74-106); SODIUM 142 mmol/L (136-145); UREA NITROGEN 9 mg/dL (7-18); eGFR NON AFRICAN AMERICAN > 90 mL/min (90-120)
[2018-06-14 12:18] LABS: CALC OSMOLALITY 279 mosm/kg (275-300); CALCIUM 7.5 mg/dL (8.5-10.1); CARBON DIOXIDE 17.3 mmol/L (21.0-32.0); CHLORIDE - SERUM 110 mmol/L (98-107); CREATININE - SERUM 0.8 mg/dL (0.6-1.3); GLUCOSE 110 mg/dL (74-106); POTASSIUM - SERUM 3.2 mmol/L (3.5-5.1); SODIUM 141 mmol/L (136-145); UREA NITROGEN 8 mg/dL (7-18); eGFR NON AFRICAN AMERICAN > 90 mL/min (90-120)
--- NOTE | 2018-06-14 20:07 | MORECARE ---
CASE MANAGEMENT DISCHARGE SUMMARY PATIENT: STARR GARCIA UNIT: [id number] ADM DATE: 06/13/18 AGE: 32 : 89 SEX: M ROOM/BED: [facility] AUTHOR: WINSTON MORGAN PHYSICIAN: REFERRING PHYSICIAN: YAZ BHAT DO DATE OF SERVICE: 06/14/18 Discharge Plan Patient Name: STARR GARCIA [facility] : 1985 Planned Disposition: Anticipated Discharge Date: Discharge Date: Expected LOS: Initial Reviewer: [email or web address] Initial Review Date: 06/13/2018 Generated: 06/14/18 9:07 pm Comments DCP- Discharge Planning Updated by [email or web address]: Sailaja Camarena on 06/14/18 7:[address] CM attempted to meet with patient at bedside. Patient request for CM to come back later. CM will continue to follow and assist as needed with discharge planning / needs. Patient Name: STARR GARCIA Page [id number] at 2006 All edits/amendments must be made on the electronic document DICTATION DATE: 06/14/182006 AUTO WASHER: PHANI 06/14/182006 RPT#: [id number] DC DATE: STATUS: ADM IN [facility] [address] [place] [address] END OF REPORT
[2018-06-14 23:08] LABS: ALBUMIN 2.1 g/dL (3.4-5.0); ALKALINE PHOSPHATASE 128 U/L (46-116); ALT (SGPT) 38 U/L (10-68); BILIRUBIN - TOTAL 0.75 mg/dL (0.2-1.3); CALCIUM 7.2 mg/dL (8.5-10.1); CARBON DIOXIDE 18.6 mmol/L (21.0-32.0); CHLORIDE - SERUM 109 mmol/L (98-107); CREATININE - SERUM 0.6 mg/dL (0.6-1.3); MAGNESIUM - SERUM 1.9 mg/dL (1.8-2.4); POTASSIUM - SERUM 3.4 mmol/L (3.5-5.1); PROTEIN - SERUM 4.7 g/dL (6.4-8.2); SODIUM 140 mmol/L (136-145); eGFR NON AFRICAN AMERICAN > 90 mL/min (90-120)
[2018-06-14 23:09] LABS: CALC OSMOLALITY 278 mosm/kg (275-300); GLUCOSE 158 mg/dL (74-106); PHOSPHOROUS 1.4 mg/dL (2.5-4.9); UREA NITROGEN 5 mg/dL (7-18)
[2018-06-15] VITALS (32 sets, daily range): BP systolic 119–136; BP diastolic 86–101
[2018-06-15 03:24] LABS: BASOPHILS 0.1 % (0-2); EOSINOPHILS 1.7 % (0-7); HEMATOCRIT 36.7 % (42.0-54.0); HEMOGLOBIN 12.5 g/dL (13.5-17.5); IMMATURE GRANULOCYTES 0.4 % (0-5); LYMPHOCYTES 23.4 % (15-50); MCH 30.8 pg (26.0-34.0); MCHC 34.1 g/dL (31.0-37.0); MCV 90.4 fL (80.0-100.0); MEAN PLATELET VOLUME 10.4 fL (7.4-10.4); MONOCYTES 6.9 % (2-11); NEUTROPHILS 67.5 % (40-80); PLATELET COUNT 217 10x3/uL (130-400); RBC 4.06 10x6/uL (4.20-6.10); RDW 14.9 % (11.5-14.5)
[2018-06-15 03:25] LABS: WBC 7.6 10x3/uL (4.8-10.8)
[2018-06-15 03:39] LABS: ALBUMIN 2.1 g/dL (3.4-5.0); ALKALINE PHOSPHATASE 131 U/L (46-116); ALT (SGPT) 37 U/L (10-68); BILIRUBIN - TOTAL 0.74 mg/dL (0.2-1.3); CALC OSMOLALITY 274 mosm/kg (275-300); CALCIUM 7.4 mg/dL (8.5-10.1); CARBON DIOXIDE 19.8 mmol/L (21.0-32.0); CHLORIDE - SERUM 109 mmol/L (98-107); CREATININE - SERUM 0.6 mg/dL (0.6-1.3); GLUCOSE 138 mg/dL (74-106); MAGNESIUM - SERUM 1.9 mg/dL (1.8-2.4); POTASSIUM - SERUM 3.5 mmol/L (3.5-5.1); PROTEIN - SERUM 4.9 g/dL (6.4-8.2); SODIUM 138 mmol/L (136-145); UREA NITROGEN 4 mg/dL (7-18); eGFR NON AFRICAN AMERICAN > 90 mL/min (90-120)
[2018-06-15 07:52] LABS: ALBUMIN 2.1 g/dL (3.4-5.0); ALKALINE PHOSPHATASE 137 U/L (46-116); ALT (SGPT) 39 U/L (10-68); BILIRUBIN - TOTAL 0.79 mg/dL (0.2-1.3); CALC OSMOLALITY 276 mosm/kg (275-300); CALCIUM 7.4 mg/dL (8.5-10.1); CARBON DIOXIDE 19.7 mmol/L (21.0-32.0); CHLORIDE - SERUM 109 mmol/L (98-107); CREATININE - SERUM 0.6 mg/dL (0.6-1.3); GLUCOSE 118 mg/dL (74-106); MAGNESIUM - SERUM 1.8 mg/dL (1.8-2.4); POTASSIUM - SERUM 3.7 mmol/L (3.5-5.1); PROTEIN - SERUM 4.8 g/dL (6.4-8.2); SODIUM 140 mmol/L (136-145); UREA NITROGEN 4 mg/dL (7-18); eGFR NON AFRICAN AMERICAN > 90 mL/min (90-120)
[2018-06-15 11:15] LABS: ALBUMIN 2.2 g/dL (3.4-5.0); ALKALINE PHOSPHATASE 150 U/L (46-116); ALT (SGPT) 42 U/L (10-68); BILIRUBIN - TOTAL 0.78 mg/dL (0.2-1.3); CALC OSMOLALITY 278 mosm/kg (275-300); CALCIUM 7.5 mg/dL (8.5-10.1); CARBON DIOXIDE 18.7 mmol/L (21.0-32.0); CHLORIDE - SERUM 107 mmol/L (98-107); GLUCOSE 145 mg/dL (74-106); MAGNESIUM - SERUM 1.6 mg/dL (1.8-2.4); POTASSIUM - SERUM 3.3 mmol/L (3.5-5.1); PROTEIN - SERUM 5.2 g/dL (6.4-8.2); SODIUM 140 mmol/L (136-145); UREA NITROGEN 4 mg/dL (7-18)
[2018-06-15 11:19] LABS: CREATININE - SERUM 0.8 mg/dL (0.6-1.3); eGFR NON AFRICAN AMERICAN > 90 mL/min (90-120)
[2018-06-15 16:06] LABS: ALKALINE PHOSPHATASE 139 U/L (46-116); ALT (SGPT) 36 U/L (10-68); CALC OSMOLALITY 275 mosm/kg (275-300); CALCIUM 7.1 mg/dL (8.5-10.1); CARBON DIOXIDE 20.9 mmol/L (21.0-32.0); CHLORIDE - SERUM 107 mmol/L (98-107); CREATININE - SERUM 0.7 mg/dL (0.6-1.3); GLUCOSE 145 mg/dL (74-106); MAGNESIUM - SERUM 1.8 mg/dL (1.8-2.4); PHOSPHOROUS 2.5 mg/dL (2.5-4.9); POTASSIUM - SERUM 3.2 mmol/L (3.5-5.1); PROTEIN - SERUM 4.6 g/dL (6.4-8.2); SODIUM 138 mmol/L (136-145); UREA NITROGEN 4 mg/dL (7-18); eGFR NON AFRICAN AMERICAN > 90 mL/min (90-120)
[2018-06-15 21:07] LABS: ALBUMIN 2.2 g/dL (3.4-5.0); ALKALINE PHOSPHATASE 146 U/L (46-116); ALT (SGPT) 38 U/L (10-68); BILIRUBIN - TOTAL 0.79 mg/dL (0.2-1.3); CALCIUM 7.7 mg/dL (8.5-10.1); CARBON DIOXIDE 23.6 mmol/L (21.0-32.0); CHLORIDE - SERUM 107 mmol/L (98-107); CREATININE - SERUM 0.7 mg/dL (0.6-1.3); GLUCOSE 147 mg/dL (74-106); PHOSPHOROUS 2.5 mg/dL (2.5-4.9); POTASSIUM - SERUM 3.2 mmol/L (3.5-5.1); PROTEIN - SERUM 5.3 g/dL (6.4-8.2); SODIUM 139 mmol/L (136-145); eGFR NON AFRICAN AMERICAN > 90 mL/min (90-120)
[2018-06-15 21:08] LABS: CALC OSMOLALITY 278 mosm/kg (275-300); UREA NITROGEN 7 mg/dL (7-18)
[2018-06-16] VITALS (24 sets, daily range): BP systolic 101–130; BP diastolic 45–91
[2018-06-16 04:11] LABS: BASOPHILS 0.1 % (0-2); EOSINOPHILS 1.6 % (0-7); HEMATOCRIT 33.9 % (42.0-54.0); HEMOGLOBIN 11.7 g/dL (13.5-17.5); IMMATURE GRANULOCYTES 0.4 % (0-5); LYMPHOCYTES 31.8 % (15-50); MCHC 34.5 g/dL (31.0-37.0); MCV 89.7 fL (80.0-100.0); MEAN PLATELET VOLUME 10.1 fL (7.4-10.4); MONOCYTES 8.8 % (2-11); NEUTROPHILS 57.3 % (40-80); PLATELET COUNT 194 10x3/uL (130-400); RBC 3.78 10x6/uL (4.20-6.10); RDW 14.5 % (11.5-14.5); WBC 6.7 10x3/uL (4.8-10.8)
[2018-06-16 04:22] LABS: ALKALINE PHOSPHATASE 139 U/L (46-116); ALT (SGPT) 35 U/L (10-68); AMYLASE - SERUM 174 U/L (25-115); BILIRUBIN - TOTAL 0.79 mg/dL (0.2-1.3); CALC OSMOLALITY 276 mosm/kg (275-300); CALCIUM 7.3 mg/dL (8.5-10.1); CARBON DIOXIDE 23.6 mmol/L (21.0-32.0); CHLORIDE - SERUM 106 mmol/L (98-107); CREATININE - SERUM 0.6 mg/dL (0.6-1.3); GLUCOSE 119 mg/dL (74-106); LIPASE 520 U/L (73-393); SODIUM 139 mmol/L (136-145); TRIGLYCERIDE 72 mg/dL (30-200); UREA NITROGEN 6 mg/dL (7-18); eGFR NON AFRICAN AMERICAN > 90 mL/min (90-120)
[2018-06-17] VITALS (14 sets, daily range): BP systolic 98–116; BP diastolic 63–83
[2018-06-17 04:11] LABS: BASOPHILS 0.4 % (0-2); EOSINOPHILS 3.1 % (0-7); HEMATOCRIT 36.6 % (42.0-54.0); HEMOGLOBIN 12.6 g/dL (13.5-17.5); IMMATURE GRANULOCYTES 0.4 % (0-5); LYMPHOCYTES 43.8 % (15-50); MCH 30.8 pg (26.0-34.0); MCHC 34.4 g/dL (31.0-37.0); MCV 89.5 fL (80.0-100.0); MEAN PLATELET VOLUME 10.3 fL (7.4-10.4); MONOCYTES 11.7 % (2-11); NEUTROPHILS 40.6 % (40-80); PLATELET COUNT 203 10x3/uL (130-400); RBC 4.09 10x6/uL (4.20-6.10); RDW 14.5 % (11.5-14.5)
[2018-06-17 04:15] LABS: WBC 4.5 10x3/uL (4.8-10.8)
[2018-06-17 04:22] LABS: ALBUMIN 2.2 g/dL (3.4-5.0); ALKALINE PHOSPHATASE 173 U/L (46-116); ALT (SGPT) 36 U/L (10-68); BILIRUBIN - TOTAL 0.95 mg/dL (0.2-1.3); CALC OSMOLALITY 277 mosm/kg (275-300); CALCIUM 8.1 mg/dL (8.5-10.1); CARBON DIOXIDE 29.2 mmol/L (21.0-32.0); CHLORIDE - SERUM 102 mmol/L (98-107); CREATININE - SERUM 0.5 mg/dL (0.6-1.3); GLUCOSE 144 mg/dL (74-106); LIPASE 172 U/L (73-393); MAGNESIUM - SERUM 1.9 mg/dL (1.8-2.4); POTASSIUM - SERUM 3.6 mmol/L (3.5-5.1); PROTEIN - SERUM 5.5 g/dL (6.4-8.2); SODIUM 139 mmol/L (136-145); eGFR NON AFRICAN AMERICAN > 90 mL/min (90-120)
[2018-06-17 04:44] LABS: AMYLASE - SERUM 68 U/L (25-115); UREA NITROGEN 3 mg/dL (7-18)
--- NOTE | 2018-06-17 14:38 | MORECARE ---
CASE MANAGEMENT DISCHARGE SUMMARY PATIENT: STARR GARCIA UNIT: [id number] ADM DATE: 06/13/18 AGE: 32 : 89 SEX: M ROOM/BED: D.2117 AUTHOR: WINSTON MORGAN PHYSICIAN: REFERRING PHYSICIAN: YAZ BHAT DO DATE OF SERVICE: 06/17/18 Discharge Plan Patient Name: STARR GARCIA Facility: [facility]:[place] : 1985 Planned Disposition: Home or Self Care Anticipated Discharge Date: Discharge Date: Expected LOS: Initial Reviewer: [email or web address] Initial Review Date: 06/17/2018 Generated: 06/17/18 3:37 pm Comments DCP- Discharge Planning Updated by [email or web address]: Sailaja Camarena on 06/14/18 7:[address] CM attempted to meet with patient at bedside. Patient request for CM to come back later. CM will continue to follow and assist as needed with discharge planning / needs. DCPIA - Discharge Planning Initial Assessment Updated by [email or web address]: Sailaja Camarena on 06/17/18 2:34 pm * Is the patient Alert and Oriented? Yes * How many steps to enter\exit or inside your home? * PCP KENTRELL * Pharmacy [facility] [address] * Preadmission Environment Home with Family * ADLs Independent * Equipment Glucometer * List name and contact numbers for known caregivers / representatives who currently or will assist patient after discharge: ANGEL Rodriguez [facility] [phone] * Verbal permission to speak to the caregivers and representatives has been obtained from the patient. N/A * Community resources currently utilized None * Additional services required to return to the preadmission environment? No * Can the patient safely return to the preadmission environment? Yes * Has this patient been hospitalized within the prior 30 days at any hospital? Yes Last DP export: 06/14/18 7:07 pm Patient Name: STARR GARCIA Page 22144 at 1436 All edits/amendments must be made on the electronic document DICTATION DATE: 06/17/187 CANDY MAKER HELPER: PHANI 06/17/181436 RPT#: [id number] DC DATE: STATUS: ADM IN [facility] [address] [place] [address] END OF REPORT
--- NOTE | 2018-06-17 14:52 | MORECARE ---
CASE MANAGEMENT DISCHARGE SUMMARY PATIENT: STARR GARCIA UNIT: [id number] ADM DATE: 06/13/18 AGE: 32 : 89 SEX: M ROOM/BED: D.2119 AUTHOR: WINSTON MORGAN PHYSICIAN: REFERRING PHYSICIAN: YAZ BHAT DO DATE OF SERVICE: 06/17/18 Discharge Plan Patient Name: STARR GARCIA Facility: [facility]:[place] : 1985 Planned Disposition: Home or Self Care Anticipated Discharge Date: Discharge Date: Expected LOS: Initial Reviewer: [email or web address] Initial Review Date: 06/17/2018 Generated: 06/17/18 3:52 pm Comments DCP- Discharge Planning Updated by [email or web address]: Sailaja Camarena on 06/17/18 1:[address] Patient Name: STARR GARCIA Admission Status: ER Accout number: [id number] Admission Date: 06-13-2018 : 1985 Admission Diagnosis: Attending: YAZ BHAT Current LOS: 4 Anticipated DC Date: Planned Disposition: Home or Self Care Primary Insurance: MEDICAID [place] Discharge Planning Comments: CM met with patient at bedside about discharge planning / needs. Patient states he plans to discharge to his sister's house here in [place] doesn't remember address. States he will have family transport him home upon discharge. Denies need for home health or other community resource needs. States home environment is safe. Denies any discharge needs or concerns at this time. CM will continue to follow and assist as needed with discharge planning / needs. Communications Tower Technician: Sailaja Camarena DCP- Discharge Planning Updated by [email or web address]: Sialaja Camarena on 06/14/18 7:[address] CM attempted to meet with patient at bedside. Patient request for CM to come back later. CM will continue to follow and assist as needed with discharge planning / needs. DCPIA - Discharge Planning Initial Assessment Updated by [email or web address]: Sailaja Camarena on 06/17/18 2:34 pm * Is the patient Alert and Oriented? Yes * How many steps to enter\exit or inside your home? * PCP KENTRELL * Pharmacy [facility] [address] * Preadmission Environment Home with Family * ADLs Independent * Equipment Glucometer * List name and contact numbers for known caregivers / representatives who currently or will assist patient after discharge: ANGEL GRAY - MOTHER- [phone] * Verbal permission to speak to the caregivers and representatives has been obtained from the patient. N/A * Community resources currently utilized None * Additional services required to return to the preadmission environment? No * Can the patient safely return to the preadmission environment? Yes * Has this patient been hospitalized within the prior 30 days at any hospital? Yes Last DP export: 06/17/18 1:38 p Patient Name: STARR GARCIA Page 93529 at 1452 All edits/amendments must be made on the electronic document DICTATION DATE: 06/17/181450 GOVERNMENT CLERK: PHANI 06/17/181450 RPT#: [id number] DC DATE: STATUS: ADM IN [facility] [address] [place] [address] END OF REPORT
[2018-06-18 01:31] VITALS: BP 109/71
[2018-06-18 04:55] LABS: BASOPHILS 0.6 % (0-2); EOSINOPHILS 2.3 % (0-7); HEMATOCRIT 35.4 % (42.0-54.0); HEMOGLOBIN 11.7 g/dL (13.5-17.5); IMMATURE GRANULOCYTES 0.8 % (0-5); LYMPHOCYTES 40.3 % (15-50); MCH 29.7 pg (26.0-34.0); MCHC 33.1 g/dL (31.0-37.0); MCV 89.8 fL (80.0-100.0); MEAN PLATELET VOLUME 10.4 fL (7.4-10.4); RBC 3.94 10x6/uL (4.20-6.10); RDW 14.4 % (11.5-14.5); WBC 4.8 10x3/uL (4.8-10.8)
[2018-06-18 05:00] LABS: PLATELET COUNT 280 10x3/uL (130-400)
[2018-06-18 05:26] LABS: ALBUMIN 2.2 g/dL (3.4-5.0); ALKALINE PHOSPHATASE 179 U/L (46-116); ALT (SGPT) 40 U/L (10-68); BILIRUBIN - TOTAL 0.35 mg/dL (0.2-1.3); CALCIUM 8.3 mg/dL (8.5-10.1); CARBON DIOXIDE 25.8 mmol/L (21.0-32.0); CHLORIDE - SERUM 101 mmol/L (98-107); MAGNESIUM - SERUM 2.2 mg/dL (1.8-2.4); PROTEIN - SERUM 5.6 g/dL (6.4-8.2); SODIUM 138 mmol/L (136-145)
[2018-06-18 05:39] LABS: CALC OSMOLALITY 286 mosm/kg (275-300); CREATININE - SERUM 1.2 mg/dL (0.6-1.3); GLUCOSE 290 mg/dL (74-106); POTASSIUM - SERUM 4.2 mmol/L (3.5-5.1); UREA NITROGEN 13 mg/dL (7-18); eGFR NON AFRICAN AMERICAN 75 mL/min (90-120)
[2018-06-18 06:19] VITALS: BP 123/75
[2018-06-18 09:44] VITALS: BP 123/76
--- NOTE | 2018-06-18 10:45 | EC ---
PATIENT:STARR GARCIA DATE OF SERVICE: 06/13/18 SEX: M MEDICAL RECORD: [id number] DATE OF : [birth year] LOCATION:D. D.211 AGE OF PATIENT: 32 ADMISSION DATE: 06/13/18 REFERRING PHYSICIAN: INTERPRETING PHYSICIAN: СВЕТЛАНА CRABTREE MD ECHOCARDIOGRAM REPORT ECHO CHARGES 4 ECHO COMPLETE Date: 06/14/18 CLINICAL DIAGNOSIS: DIABETIC KETOACIDOSIS/DEHYRDATION ECHOCARDIOGRAPHIC MEASUREMENTS (adult normal given) AC root (d.<3.7cm) 3.4 cm LV Septum d (<1.2 cm> 0.70 cm Valve Excursion 1.5 cm LV Septum (systole) 0.80 cm Left Atria (s.<4.0cm> 3.0 cm LVPW d(<1.2cm) 1.0 cm RV (d.<2.3cm) 2.7 cm LVPW (sytole) 1.1 cm LV diastole(<5.6CM) 5.2 cm MV E-F(>70mm/sec) cm LV systole 3.9 cm LVOT Diameter 2.1 cm MV exc.(>10mm) 1.6 cm Est.ejection fraction (50-75%) % DOPPLER: LVIT cm/sec A 80.0 cm/sec E 65.0 cm/sec LA cm/sec RVSP 29 mmHg LVOT 90 cm/sec AOP1/2T m/s Asc. Ao 141 cm/sec RVOT 85 cm/sec RA cm/sec PA 102 cm/sec AV Gradient Peak 7.99 mmHg AV Mean 3.37 mmHg AV Area 2.2 cm MV Gradient Peak 2.64 mmHg MV Mean 1.60 mmHg MV Area cm COMMENTS: Productivity Engineer: Geovany BULL Aquaculture Director: Troy Crabtree TAPE# PACS Pericardial Effusion N DATE OF SERVICE: 06/14/2018 DATE OF SERVICE: 06/14/2018 FINDINGS: 1. Left ventricular chamber size is within normal limits. Left ventricular systolic function is normal. Overall ejection fraction is estimated at 60%. 2. Left atrium, right atrium, and right ventricle chamber sizes are within normal limits. 3. Valvular structures have normal structure and motion. ECHOCARDIOGRAM REPORT [id number] STARR GARCIA 4. Doppler interrogation reveals trace mitral regurgitation, trace tricuspid regurgitation, no other valvular insufficiency or stenosis. 5. No evidence of pericardial effusion or left ventricular thrombus. TRANSINT:[id number] Voice Confirmation ID: [id number] DOCUMENT ID: [id number] СВЕТЛАНА CRABTREE MD at 1045 CC: [id number] DICTATION DATE: 06/14/18 1407 ACCOUNT SERVICE ASSOCIATE: 06/14/18 1442 ADM IN [facility] [id number] [place] [address]
[2018-06-18] MEDS ORDERED: HUMULIN 70100 UNIT/1 SC (13:03)
--- NOTE | 2018-06-19 07:49 | MORECARE ---
CASE MANAGEMENT DISCHARGE SUMMARY PATIENT: STARR GARCIA UNIT: [id number] ADM DATE: 06/13/18 AGE: 32 : 89 SEX: M ROOM/BED: D.3280 AUTHOR: WINSTON MORGAN PHYSICIAN: REFERRING PHYSICIAN: YAZ BHAT DO DATE OF SERVICE: 06/19/18 Discharge Plan Patient Name: STARR GARCIA Facility: [facility]:[place] : 1985 Planned Disposition: Home or Self Care Anticipated Discharge Date: 06/18/18 Discharge Date: 06/18/2018 Expected LOS: 5 Initial Reviewer: [email or web address] Initial Review Date: 06/17/2018 Generated: 06/19/18 8:48 am Comments DCP- Discharge Planning Updated by [email or web address]: Sailaja Camarena on 06/17/18 1:[address] Patient Name: STARR GARCIA Admission Status: ER Accout number: [id number] Admission Date: 06-13-2018 : 1985 Admission Diagnosis: Attending: YAZ BHAT Current LOS: 4 Anticipated DC Date: Planned Disposition: Home or Self Care Primary Insurance: MEDICAID [place] Discharge Planning Comments: CM met with patient at bedside about discharge planning / needs. Patient states he plans to discharge to his sister's house here in [place] doesn't remember address. States he will have family transport him home upon discharge. Denies need for home health or other community resource needs. States home environment is safe. Denies any discharge needs or concerns at this time. CM will continue to follow and assist as needed with discharge planning / needs. Director Learning: Sailaja Camarena DCP- Discharge Planning Updated by [email or web address]: Sailaja Camarena on 06/14/18 7:[address] CM attempted to meet with patient at bedside. Patient request for CM to come back later. CM will continue to follow and assist as needed with discharge planning / needs. DCPIA - Discharge Planning Initial Assessment Updated by [email or web address]: Sailaja Camarena on 06/17/18 2:34 pm * Is the patient Alert and Oriented? Yes * How many steps to enter\exit or inside your home? * PCP KENTRELL * Pharmacy [facility] [address] * Preadmission Environment Home with Family * ADLs Independent * Equipment Glucometer * List name and contact numbers for known caregivers / representatives who currently or will assist patient after discharge: ANGEL FAROOQ- [phone] * Verbal permission to speak to the caregivers and representatives has been obtained from the patient. N/A * Community resources currently utilized None * Additional services required to return to the preadmission environment? No * Can the patient safely return to the preadmission environment? Yes * Has this patient been hospitalized within the prior 30 days at any hospital? Yes Last DP export: 06/17/18 1:52 p Patient Name: STARR GARCIA Page 78870 at 0749 All edits/amendments must be made on the electronic document DICTATION DATE: 06/19/18747 PROFESSOR OF FINE ART: PHANI 06/19/1848 RPT#: [id number] DC DATE:06/18/18 STATUS: DIS IN [facility] [address] [place] [address] END OF REPORT
== END 2018-06-18 13:58 | disposition home or self-care (01) | DRG 637 ==
LOC: D.ER 09:55 → D.CVICU 11:50 → D.EDHOLD 11:50 → D.CVICU 15:52 → D.M2 06-17 14:06
PROVIDERS: Emergency Medicine; Family Medicine; Internal Medicine Gastroenterology; Internal Medicine Pulmonary Disease; ADMIT Family Medicine
DX: E11.10 Type 2 diabetes mellitus with ketoacidosis without coma (principal); G93.41 Metabolic encephalopathy; K85.30 Drug induced acute pancreatitis without necrosis or infection; N17.9 Acute kidney failure, unspecified; T68.XXXA Hypothermia, initial encounter; F15.90 Other stimulant use, unspecified, uncomplicated; T43.621A Poisoning by amphetamines, accidental (unintentional), initial encounter; Z79.4 Long term (current) use of insulin; K21.9 Gastro-esophageal reflux disease without esophagitis; I95.9 Hypotension, unspecified; Z91.19 Patient's noncompliance with other medical treatment and regimen; K76.0 Fatty (change of) liver, not elsewhere classified

== ENCOUNTER 2018-07-10 10:23 | Inpatient (IN) | payer MEDICAID ==
[~2018-07-10] VITALS: Ht 162.6 cm; Wt 52.3 kg
[2018-07-10] VITALS (14 sets, daily range): BP systolic 109–140; BP diastolic 69–99; BMI 18.9
[2018-07-10 10:44] LABS: BASOPHILS 0.2 % (0-2); EOSINOPHILS 0.1 % (0-7); HEMOGLOBIN 18.4 g/dL (13.5-17.5); IMMATURE GRANULOCYTES 1.3 % (0-5); LYMPHOCYTES 15.5 % (15-50); MCH 31.3 pg (26.0-34.0); MCHC 36.1 g/dL (31.0-37.0); MCV 86.7 fL (80.0-100.0); MEAN PLATELET VOLUME 11.2 fL (7.4-10.4); MONOCYTES 7.2 % (2-11); NEUTROPHILS 75.7 % (40-80); PLATELET COUNT 313 10x3/uL (130-400); RBC 5.88 10x6/uL (4.20-6.10); RDW 13.7 % (11.5-14.5); WBC 13.4 10x3/uL (4.8-10.8)
[2018-07-10 10:56] LABS: ALBUMIN 3.7 g/dL (3.4-5.0); ALKALINE PHOSPHATASE 304 U/L (46-116); ALT (SGPT) 41 U/L (10-68); AMYLASE - SERUM 36 U/L (25-115); BILIRUBIN - TOTAL 1.89 mg/dL (0.2-1.3); CALC OSMOLALITY 272 mosm/kg (275-300); CALCIUM 9.5 mg/dL (8.5-10.1); CARBON DIOXIDE 15.7 mmol/L (21.0-32.0); CHLORIDE - SERUM 92 mmol/L (98-107); CREATININE - SERUM 1.3 mg/dL (0.6-1.3); LIPASE 99 U/L (73-393); MAGNESIUM - SERUM 1.8 mg/dL (1.8-2.4); POTASSIUM - SERUM 3.9 mmol/L (3.5-5.1); PROTEIN - SERUM 8.7 g/dL (6.4-8.2); SODIUM 132 mmol/L (136-145); UREA NITROGEN 16 mg/dL (7-18); eGFR NON AFRICAN AMERICAN 69 mL/min (90-120)
[2018-07-10 10:57] LABS: GLUCOSE 224 mg/dL (74-106)
[2018-07-10 10:58] LABS: KETONE - SERUM MODERATE mg/dL (NEGATIVE)
[2018-07-10 12:40] LABS: UDS - AMPHET NEGATIVE QUAL (NEGATIVE); UDS - BARB NEGATIVE QUAL (NEGATIVE); UDS - BENZO NEGATIVE QUAL (NEGATIVE); UDS - COCAINE NEGATIVE QUAL (NEGATIVE); UDS - OPIATE NEGATIVE QUAL (NEGATIVE); UDS - PCP NEGATIVE QUAL (NEGATIVE); UDS - THC NEGATIVE QUAL (NEGATIVE)
[2018-07-10 12:44] LABS: APPEARANCE HAZY (CLEAR); BILIRUBIN NEGATIVE (NEGATIVE); COLOR YELLOW (YELLOW); EPITHELIAL CELLS 0-5 /hpf (0-5); GLUCOSE 100 mg/dL (NEGATIVE); KETONE LARGE mg/dL (NEGATIVE); NITRITE NEGATIVE (NEGATIVE); PROTEIN TRACE mg/dL (NEGATIVE); RED CELLS - URINE RARE /hpf (0-5); SPECIFIC GRAVITY 1.025 (1.005-1.020); UROBILINOGEN NORMAL (NORMAL)
[2018-07-10 12:45] LABS: BACTERIA FEW /hpf (NONE SEEN); GRANULAR CAST OCC /lpf (NONE SEEN); HYALINE CAST 0-5 /lpf (NONE SEEN); MUCUS >1+ /lpf (NONE SEEN)
--- NOTE | 2018-07-10 15:00 | NUR ---
PT ARRIVED IN THE UNIT. PT HOOKED TO ICU MONITORS. PT DRY HEAVING IN A EMESIS BAG. PRN ZOFRAN GIVEN. SEE MAR. PT TACHYCARDIC ON THE MONITOR AT 120-140. RA. TACHYPNEA/LABORED BREATHING NOTED. 100% SPO2. LEFT AC IV NOTED WITH NS INFUSING. SEE IV FLOW SHEET. NO INSULIN ON THE TIME OF ARRIVAL BUT ER NURSE OBTAINED THE INSULIN GTT AND BROUGHT IT UP TO THE PT. FSBS 426. INSULIN INITIATED PER PROTOCHOL. PT STATES THAT HE DOES NOT TAKE GOOD CARE OF HIS DM. PT VERY NEGATIVE AND DISTANT WITH CARE. CALL LIGHT IN REACH. WILL CONT POC.
--- NOTE | 2018-07-10 15:30 | NUR ---
DR SANTOS IN THE UNIT. SEE ORDERS.
--- NOTE | 2018-07-10 16:00 | NUR ---
TITRATING INSULIN PER PROTOCHOL. PT VSS. WILL CONT POC.
[2018-07-10 16:53] LABS: CALCIUM 7.6 mg/dL (8.5-10.1); CREATININE - SERUM 1.3 mg/dL (0.6-1.3); MAGNESIUM - SERUM 1.7 mg/dL (1.8-2.4)
--- NOTE | 2018-07-10 17:48 | NUR ---
CO2 LVL 8. DR SANTOS PAGED AND NOTIFIED. N.O TO GIVE 1AM OF HCO3. PIV STARTED X3 ATTEMPTS. NEW IV IN LEFT UPPER ARM. PATENT. DRESSING C/D/I. WILL CONT POC.
--- NOTE | 2018-07-10 19:05 | NUR ---
Received patient resting in bed with eyes open, assessment completed per flowsheet. Patient AO x4, calm and cooperative. S1/S2 noted NSR on telemetry with HR 90, rythmic and regular. Breathing is shallow on room air with O2 sat 99%, lung sounds clear throughout. Abdomen is soft/flat with bowel sounds active x4, non-tender. Ambulates self to bathroom without assist, gait is upright and steady. Full ROM all extremities with all pulses palpable, cap refill < 3 sec with skin warm/dry. Denies pain or other needs at this time, see flowsheet for details. All VSS and will continue to monitor.
[2018-07-10 20:29] LABS: CALCIUM 7.3 mg/dL (8.5-10.1); CHLORIDE - SERUM 101 mmol/L (98-107); CREATININE - SERUM 1.2 mg/dL (0.6-1.3); MAGNESIUM - SERUM 1.6 mg/dL (1.8-2.4); POTASSIUM - SERUM 3.5 mmol/L (3.5-5.1); SODIUM 137 mmol/L (136-145); UREA NITROGEN 12 mg/dL (7-18); eGFR NON AFRICAN AMERICAN 75 mL/min (90-120)
[2018-07-10 20:40] LABS: CALC OSMOLALITY 276 mosm/kg (275-300); CARBON DIOXIDE 13.6 mmol/L (21.0-32.0); GLUCOSE 159 mg/dL (74-106)
--- NOTE | 2018-07-10 21:00 | NUR ---
Patient sleeping in bed with eyes closed, no s/s of distress at this time. Discussed glucose monitoring/discharge planning, patient stated understanding. Denies pain or other needs at this time, all VSS and will continue to monitor.
--- NOTE | 2018-07-10 23:00 | NUR ---
Reassessment completed per flowsheet, no changes from previous assessment. Insulin GTT titrating per protocol, patient denies pain or other needs at this time. See flowsheet for details, all VSS and will continue to monitor.
[2018-07-11] VITALS (22 sets, daily range): BP systolic 99–116; BP diastolic 60–79; Ht 162.6 cm; Wt 52.3 kg
--- NOTE | 2018-07-11 01:00 | NUR ---
Patient ambulates self to bathroom without assist, no reported difficulties. Provided snack at request, titrating Insulin per protocol. Denies pain or other needs, will continue to monitor.
--- NOTE | 2018-07-11 02:58 | NUR ---
Reassessment completed per flowsheet, no changes from previous assessment. Insulin GTT titrating per protocol, no reported difficulties. Patient AO x4, answers appropriately/follows instructions. Denies pain or other needs at this time, see flowsheet for details. All VSS and will continue to monitor.
--- NOTE | 2018-07-11 05:00 | NUR ---
AM labs collected without difficulty, provided snack on request. Insulin GTT titrating per protocol, denies pain or other needs at this time. Will continue to monitor.
[2018-07-11 05:02] LABS: BASOPHILS 0.3 % (0-2); EOSINOPHILS 2.5 % (0-7); IMMATURE GRANULOCYTES 1.5 % (0-5); LYMPHOCYTES 27.4 % (15-50); MCH 30.5 pg (26.0-34.0); MCHC 35.2 g/dL (31.0-37.0); MCV 86.7 fL (80.0-100.0); MEAN PLATELET VOLUME 10.8 fL (7.4-10.4); MONOCYTES 11.6 % (2-11); NEUTROPHILS 56.7 % (40-80); RDW 13.8 % (11.5-14.5)
[2018-07-11 05:16] LABS: HEMATOCRIT 33.8 % (42.0-54.0); HEMOGLOBIN 11.9 g/dL (13.5-17.5); PLATELET COUNT 236 10x3/uL (130-400); WBC 7.5 10x3/uL (4.8-10.8)
[2018-07-11 05:30] LABS: ALKALINE PHOSPHATASE 166 U/L (46-116); BILIRUBIN - TOTAL 1.04 mg/dL (0.2-1.3); CALCIUM 7.3 mg/dL (8.5-10.1); CHLORIDE - SERUM 101 mmol/L (98-107); CREATININE - SERUM 0.9 mg/dL (0.6-1.3); SODIUM 135 mmol/L (136-145); UREA NITROGEN 9 mg/dL (7-18); eGFR NON AFRICAN AMERICAN > 90 mL/min (90-120)
[2018-07-11 05:40] LABS: ALBUMIN 2.2 g/dL (3.4-5.0); ALT (SGPT) 28 U/L (10-68); CALC OSMOLALITY 268 mosm/kg (275-300); CARBON DIOXIDE 19.7 mmol/L (21.0-32.0); GLUCOSE 101 mg/dL (74-106)
[2018-07-11 05:49] LABS: KETONE - SERUM LARGE mg/dL (NEGATIVE)
[2018-07-11 08:18] LABS: KETONE - SERUM SMALL mg/dL (NEGATIVE)
[2018-07-11 08:22] LABS: CALC OSMOLALITY 272 mosm/kg (275-300); CALCIUM 7.4 mg/dL (8.5-10.1); CARBON DIOXIDE 20.9 mmol/L (21.0-32.0); CHLORIDE - SERUM 101 mmol/L (98-107); GLUCOSE 183 mg/dL (74-106); MAGNESIUM - SERUM 1.4 mg/dL (1.8-2.4); SODIUM 135 mmol/L (136-145); UREA NITROGEN 7 mg/dL (7-18); eGFR NON AFRICAN AMERICAN > 90 mL/min (90-120)
[2018-07-11 08:23] LABS: POTASSIUM - SERUM 2.7 mmol/L (3.5-5.1)
--- NOTE | 2018-07-11 08:35 | NUR ---
DR GRAY IN UNIT NOTIFIED OF K
--- NOTE | 2018-07-11 09:31 | NUR ---
0700 PT RECIEVED ALERT AND ORIENTED VSS DENIES PAIN, PIV TO RUE AND LUE WITH INSULIN PER PROTOCOL AND D5NS PER ORDERS, CONTINENT, DENIES ALL NEEDS [address] GRAY, WILL CONTINUE MORPHINE BUT CHANGE TO 2MG FOR BACK PAIN, OK TO EAT, CONTINUE IV INSULIN GTT 0900 CALLED DIETARY FOR TRAY
--- NOTE | 2018-07-11 11:32 | MORECARE ---
CASE MANAGEMENT DISCHARGE SUMMARY PATIENT: STARR GARCIA UNIT: [id number] ADM DATE: 07/10/18 AGE: 32 : 89 SEX: M [facility] AUTHOR: WINSTON MORGAN PHYSICIAN: REFERRING PHYSICIAN: DAVID GRAY MD DATE OF SERVICE: 07/11/18 Discharge Plan Patient Name: STARR GARCIA [facility] : 1985 Planned Disposition: Home Anticipated Discharge Date: Discharge Date: Expected LOS: Initial Reviewer: [email or web address] Initial Review Date: 07/10/2018 Generated: 07/11/18 12:31 pm DCPIA - Discharge Planning Initial Assessment Updated by [email or web address]: Sailaja Camarena on 07/11/18 11:28 am * Is the patient Alert and Oriented? Yes * How many steps to enter\exit or inside your home? * PCP KENTRELL * Pharmacy [facility] * Preadmission Environment Home with Family * ADLs Independent * Equipment Glucometer * List name and contact numbers for known caregivers / representatives who currently or will assist patient after discharge: ANGEL GRAY [facility] [phone] * Verbal permission to speak to the caregivers and representatives has been obtained from the patient. Yes * Community resources currently utilized None * Additional services required to return to the preadmission environment? No * Can the patient safely return to the preadmission environment? Yes * Has this patient been hospitalized within the prior 30 days at any hospital? Yes Patient Name: STARR GARCIA Page 35140 at 1132 All edits/amendments must be made on the electronic document DICTATION DATE: 07/11/18 1131 WATCH ENGINE OPERATOR: PHANI 07/11/18 1131 RPT#: [id number] DC DATE: STATUS: ADM IN [facility] [address] [place] [address] END OF REPORT
--- NOTE | 2018-07-11 12:04 | MORECARE ---
CASE MANAGEMENT DISCHARGE SUMMARY PATIENT: STARR GARCIA UNIT: [id number] ADM DATE: 07/10/18 AGE: 32 : [birth year] SEX: M ROOM/BED: D.CV01 AUTHOR: WINSTON MORGAN PHYSICIAN: REFERRING PHYSICIAN: DAVID GRAY MD DATE OF SERVICE: 07/11/18 Discharge Plan Patient Name: STARR GARCIA Facility: [facility]:[place] : 1985 Planned Disposition: Home Anticipated Discharge Date: Discharge Date: Expected LOS: Initial Reviewer: [email or web address] Initial Review Date: 07/10/2018 Generated: 07/11/18 1:03 pm Comments DCP- Discharge Planning Updated by [email or web address]: Sailaja Camarena on 07/11/18 11:[address] Patient Name: STARR GARCIA Admission Status: ER Accout number: [id number] Admission Date: 07-10-2018 : 1985 Admission Diagnosis: Attending: DAVID GRAY Current LOS: 1 Anticipated DC Date: Planned Disposition: Home Primary Insurance: MEDICAID [place] Discharge Planning Comments: CM met with patient at bedside about discharge planning /needs. Patient states he lives with his sister Aline here in town but doesn't know her address or phone number. He gives a contact number [phone] Angel Arriaga (mother) Patient states he doesn't have a phone. Patient states he plans to discharge to his sisters home. States he will have family transport him home upon discharge. Patient states he has a glucometer and insulin supplies. He states he has no other medical equipment. CM asked if he sees a specialist for his diabetes. He stated that he doesn't see anyone for his diabetes other than Dr. Morales. He stated that he would like information regarding bottle washer machine CM gave phone number of local bottle washer machine.Denies need for home health or other community resource needs. States home environment is safe.Denies any discharge needs or concerns at this time. CM will continue to follow and assist as needed with discharge planning / needs Cargo Worker: Sailaja Camarena DCPIA - Discharge Planning Initial Assessment Updated by [email or web address]: Sailaja Camarena on 07/11/18 11:28 am * Is the patient Alert and Oriented? Yes * How many steps to enter\exit or inside your home? * PCP KENTRELL * Pharmacy [facility] * Preadmission Environment Home with Family * ADLs Independent * Equipment Glucometer * List name and contact numbers for known caregivers / representatives who currently or will assist patient after discharge: ANGEL FAROOQ - [phone] * Verbal permission to speak to the caregivers and representatives has been obtained from the patient. Yes * Community resources currently utilized None * Additional services required to return to the preadmission environment? No * Can the patient safely return to the preadmission environment? Yes * Has this patient been hospitalized within the prior 30 days at any hospital? Yes Last DP export: 07/11/18 10:31 am Patient Name: STARR GARCIA Page 90300 at 1204 All edits/amendments must be made on the electronic document DICTATION DATE: 07/11/181202 MULTI CRAFT MAINTENANCE TECHNICIAN: PHANI 07/11/181202 RPT#: [id number] DC DATE: STATUS: ADM IN [facility] [address] [place] [address] END OF REPORT
--- NOTE | 2018-07-11 14:37 | NUR ---
1100 ABLE TO REPOSITION SELF, DENIES ALL NEEDS, CALL LIGHT WITHIN REACH, USES URINAL INDEPENDENTLY 1300 ATE 75% LUNCH, DENIES ALL NEEDS, CONTINUED INSULIN GTT PER PROTOCOL, ATTEMPTED TO DISCUSS DM AND HOW PT MANAGES AT HOME AND HE STATED "ZONIA BEEN DOING THIS FOR 6 YEARS I KNOW IT ALL ALREADY SO DONT WASTE MY TIME"
--- NOTE | 2018-07-11 15:14 | NUR ---
NOTIFIED DR GRAY OF K2.9, ORDERS FOR ELECTROLYTE PROTOCOL
--- NOTE | 2018-07-11 17:42 | NUR ---
PT ATE 75% DINNER, TOLERATED WELL, VSS, DENIES ALL NEEDS
--- NOTE | 2018-07-11 19:28 | NUR ---
REPORT RECEIVED, SHIFT ASSESSMENT COMPLETED PER FLOW SHEET. AAOX4. RT AC AND LT UPPER ARM PIV PATENT, NO SIGNS OF INFECTION OR INFILTRATION. SEE FLOW SHEET FOR COMPLETE ASSESSMENT. CALL LIGHT WITHIN REACH. WILL CONTINUE TO MONITOR.
--- NOTE | 2018-07-11 19:59 | NUR ---
LABS REVIEWED, SERUM KETONES NEGATIVE. PAGED DR. GRAY TO REPORT LAB RESULTS. WILL WAIT FOR CALL BACK.
--- NOTE | 2018-07-11 20:19 | NUR ---
DELIA PETTY APN RETURNED CALL, SHE IS SHIPPER RECEIVER FOR DR. GRAY. INFORMED HER OF LAB RESULTS, INSULIN DRIP RATE, FSBS, AND DIET ORDERS. NEW ORDERS RECEIVED, SEE ORDERS FOR DETAILS.
--- NOTE | 2018-07-11 21:45 | NUR ---
FSBS ASSESSED AND TREATED PER SLIDING SCALE, SEE EMAR FOR DETAILS.
--- NOTE | 2018-07-11 23:21 | NUR ---
REASSESSMENT COMPLETED FLOW SHEET, SEE FOR DETAILS. NO ACUTE DISTRESS NOTED. DENIES NEEDS. WILL CONTINUE TO MONITOR.
[2018-07-12] VITALS (13 sets, daily range): BP systolic 100–125; BP diastolic 65–87
--- NOTE | 2018-07-12 01:29 | NUR ---
REPORT RECIEVED, ASSUMED CARE. PATIENT IN BED, WATCHING TV. NEEDS MET. VSS, BED LOW AND LOCKED, CALL LIGHT IN REACH. WILL CPOC.
--- NOTE | 2018-07-12 03:00 | NUR ---
REASSESSMENT COMPLETE, PLEASE SEE FLOW SHEETS FOR DETAILS. NEEDS MET. VSS. USES URINAL. MONITORING CLOSELY. WILL CONTINUE PLAN OF CARE.
--- NOTE | 2018-07-12 05:03 | NUR ---
OFFERED MATERIALS FOR BATHING, PT STATED HE DID THAT YESTERDAY, DID NOT WANT TO TODAY. VSS. BED LOW AND LOCKED, CALL LIGHT IN REACH. DENIES PAIN/NEEDS. WILL CPOC.
[2018-07-12 05:43] LABS: BASOPHILS 0.3 % (0-2); EOSINOPHILS 1.9 % (0-7); HEMATOCRIT 36.2 % (42.0-54.0); HEMOGLOBIN 12.5 g/dL (13.5-17.5); IMMATURE GRANULOCYTES 1.4 % (0-5); LYMPHOCYTES 31.1 % (15-50); MCH 30.3 pg (26.0-34.0); MCHC 34.5 g/dL (31.0-37.0); MCV 87.9 fL (80.0-100.0); MEAN PLATELET VOLUME 10.8 fL (7.4-10.4); MONOCYTES 11.7 % (2-11); NEUTROPHILS 53.6 % (40-80); RBC 4.12 10x6/uL (4.20-6.10); RDW 13.6 % (11.5-14.5); WBC 5.7 10x3/uL (4.8-10.8)
[2018-07-12 05:46] LABS: PLATELET COUNT 186 10x3/uL (130-400)
[2018-07-12 06:04] LABS: ALBUMIN 2.4 g/dL (3.4-5.0); ALKALINE PHOSPHATASE 176 U/L (46-116); ALT (SGPT) 29 U/L (10-68); BILIRUBIN - TOTAL 0.85 mg/dL (0.2-1.3); CALCIUM 7.8 mg/dL (8.5-10.1); CARBON DIOXIDE 23.1 mmol/L (21.0-32.0); CHLORIDE - SERUM 101 mmol/L (98-107); CREATININE - SERUM 0.8 mg/dL (0.6-1.3); PROTEIN - SERUM 5.6 g/dL (6.4-8.2); SODIUM 136 mmol/L (136-145); UREA NITROGEN 6 mg/dL (7-18); eGFR NON AFRICAN AMERICAN > 90 mL/min (90-120)
[2018-07-12 06:14] LABS: CALC OSMOLALITY 283 mosm/kg (275-300); GLUCOSE 349 mg/dL (74-106); POTASSIUM - SERUM 4.6 mmol/L (3.5-5.1)
--- NOTE | 2018-07-12 07:00 | NUR ---
REPORT RECEIVED. PT ALERT AND ORIENTED. PT ON ACHS LOW SLIDING SCALE FOR HUMALOG. HAS IV IN LT UPPER ARM AND SALINE LOCK IN RIGHT AC. VSS. ASSESSMENT PERFORMED. PT IS UP AD MSOES. NO COMPLAINTS OR NEEDS AT THIS TIME. WILL CONTINUE TO MONITOR.
--- NOTE | 2018-07-12 09:00 | NUR ---
PT RESTING QUIETLY. REPORTS PAIN LEVEL HAS DECREASED IN BACK SINCE RECEIVING 2MG OF MORPHINE. VSS. NO NEEDS AT THIS TIME.
--- NOTE | 2018-07-12 11:20 | NUR ---
REPORT GIVEN TO JAMESON ON MED 2.
--- NOTE | 2018-07-12 13:13 | NUR ---
PT ESCORTED OUT VIA WHEELCHAIR WITH TECH TO POV. FAMILY AT SIDE, GRANDDAUGHTER DRIVING. NO CONCERNS/COMPLAINTS AT THIS TIME. IV REMOVED TIP INTACT.
--- NOTE | 2018-07-12 13:19 | NUR ---
[facility] AD [facility]ES A/O.
--- NOTE | 2018-07-12 15:35 | NUR ---
PT ASKED TO SKIP 1600 VS SO HE COULD REST. ACCOMIDATED.
--- NOTE | 2018-07-12 19:29 | NUR ---
EVENING ROUNDS COMPLETED. REPORT RECEIVED. PT SITTING UP IN BED WITH EYES OPEN, RR EVEN AND UNLABORED. NO S/S OF DISTRESS NOTED. INTRODUCED SELF TO PT. PT DENIES FURTHER NEEDS AT THIS TIME. CALL LIGHT IN REACH. WILL CTM.
--- NOTE | 2018-07-12 21:32 | NUR ---
BLOOD SUGAR 332 TREATED ORDERED. ADMINISTERED ORDERED ANALGESIC FOR COMPLAINTS OF PAIN IN BACK. PT STATES PAIN OF 7 ON A SCALE OF 0-10. DENIES FURTHER NEEDS AT THIS TIME. CALL LIGHT IN REACH. WILL CTM.
--- NOTE | 2018-07-13 02:21 | NUR ---
I have reviewed this patient and I concur with the Shift Assessment completed by the Licensed Practical Nurse today this shift.
[2018-07-13 04:30] VITALS: BP 109/82
[2018-07-13 05:35] LABS: BASOPHILS 0.6 % (0-2); EOSINOPHILS 3.4 % (0-7); HEMATOCRIT 36.6 % (42.0-54.0); HEMOGLOBIN 12.5 g/dL (13.5-17.5); IMMATURE GRANULOCYTES 0.9 % (0-5); MCH 30.6 pg (26.0-34.0); MCHC 34.2 g/dL (31.0-37.0); MCV 89.7 fL (80.0-100.0); MEAN PLATELET VOLUME 10.7 fL (7.4-10.4); NEUTROPHILS 51.1 % (40-80); PLATELET COUNT 223 10x3/uL (130-400); RBC 4.08 10x6/uL (4.20-6.10); RDW 13.3 % (11.5-14.5); WBC 6.4 10x3/uL (4.8-10.8)
[2018-07-13 06:00] LABS: ALBUMIN 2.4 g/dL (3.4-5.0); ALKALINE PHOSPHATASE 189 U/L (46-116); ALT (SGPT) 27 U/L (10-68); BILIRUBIN - TOTAL 0.48 mg/dL (0.2-1.3); CALC OSMOLALITY 281 mosm/kg (275-300); CALCIUM 8.1 mg/dL (8.5-10.1); CARBON DIOXIDE 26.8 mmol/L (21.0-32.0); CHLORIDE - SERUM 97 mmol/L (98-107); CREATININE - SERUM 0.7 mg/dL (0.6-1.3); GLUCOSE 366 mg/dL (74-106); POTASSIUM - SERUM 4.3 mmol/L (3.5-5.1); SODIUM 134 mmol/L (136-145); eGFR NON AFRICAN AMERICAN > 90 mL/min (90-120)
[2018-07-13 06:06] LABS: UREA NITROGEN 11 mg/dL (7-18)
--- NOTE | 2018-07-13 07:17 | NUR ---
PT AWAKE AND ORIENTE. ASKED IF HE COULD WALK TO GET COFFEE AND SNACKS, TOLD HIM HE COULD. PT HAS NO PROBLEMS AMBULATING. CL IN REACH. SRX2.
[2018-07-13 09:30] VITALS: BP 125/88
[2018-07-13 12:26] VITALS: BP 117/72
--- NOTE | 2018-07-13 17:00 | NUR ---
PT UP TO SIDE OF BED, EATING DINNER, NAD NOTED. AGREE WITH LPNS ASSESSMENT.
[2018-07-13 17:16] VITALS: BP 117/72
--- NOTE | 2018-07-13 17:40 | NUR ---
PT ON SIDE OF BED, EATING SUPPER. C/O BACK PAIN, PROVIDED MEDICINE. NO OTHER COMPLAINTS/CONCERNS AT THIS TIME. CL INREACH SRX2
--- NOTE | 2018-07-13 19:35 | NUR ---
EVENING ROUNDS COMPLETED. REPORT RECEIVED. PT SITTING UP IN BED WITH EYES OPEN, RR EVEN AND UNLABORED. NO S/S OF DISTRESS. BED IN LOW POSITION. LEFT UPPPER ARM PIV INFUSING NORMAL SALINE ORDERED. INTRODUCED SELF TO PT. PT DENIES FURTHER NEEDS AT THIS TIME. CALL LIGHT IN REACH. WILL CTM.
[2018-07-13 19:55] VITALS: BP 110/66
[2018-07-13 23:55] VITALS: BP 119/79
--- NOTE | 2018-07-14 00:38 | NUR ---
I have reviewed this patient and I concur with the Shift Assessment completed by the Licensed Practical Nurse today this shift.
--- NOTE | 2018-07-14 01:34 | NUR ---
ADMINISTERED ORDERED ANALGESIC FOR COMPLAINTS OF PAIN IN BACK, PT STATES PAIN OF A 7 ON A SCALE OF 0-10.
[2018-07-14 03:55] VITALS: BP 116/69
--- NOTE | 2018-07-14 04:36 | NUR ---
PT SITTING UP IN BED WITH EYES OPEN, RR EVEN AND UNLABORED. BED IN LOW POSITION. NO S/S OF DISTRESS NOTED. DENIES FURTHER NEEDS AT THIS TIME. CALL LIGHT IN REACH. WILL CTM.
[2018-07-14 06:20] LABS: BASOPHILS 0.4 % (0-2); EOSINOPHILS 5.8 % (0-7); HEMATOCRIT 35.6 % (42.0-54.0); HEMOGLOBIN 12.2 g/dL (13.5-17.5); IMMATURE GRANULOCYTES 1.7 % (0-5); LYMPHOCYTES 40.2 % (15-50); MCH 30.7 pg (26.0-34.0); MCHC 34.3 g/dL (31.0-37.0); MCV 89.4 fL (80.0-100.0); MEAN PLATELET VOLUME 10.9 fL (7.4-10.4); NEUTROPHILS 42.9 % (40-80); PLATELET COUNT 235 10x3/uL (130-400); RBC 3.98 10x6/uL (4.20-6.10); RDW 13.1 % (11.5-14.5); WBC 4.8 10x3/uL (4.8-10.8)
[2018-07-14 06:38] LABS: ALBUMIN 2.3 g/dL (3.4-5.0); ALKALINE PHOSPHATASE 167 U/L (46-116); ALT (SGPT) 25 U/L (10-68); BILIRUBIN - TOTAL 0.28 mg/dL (0.2-1.3); CALC OSMOLALITY 283 mosm/kg (275-300); CALCIUM 8.2 mg/dL (8.5-10.1); CARBON DIOXIDE 31.9 mmol/L (21.0-32.0); CHLORIDE - SERUM 101 mmol/L (98-107); CREATININE - SERUM 0.6 mg/dL (0.6-1.3); GLUCOSE 212 mg/dL (74-106); PROTEIN - SERUM 5.7 g/dL (6.4-8.2); SODIUM 139 mmol/L (136-145); UREA NITROGEN 13 mg/dL (7-18); eGFR NON AFRICAN AMERICAN > 90 mL/min (90-120)
--- NOTE | 2018-07-14 07:10 | NUR ---
PT WOKE EASILY WHEN I ENTERED. STATES THAT HE WILL BE GLAD TO LEAVE TODAY BUT CAN NOT LEAVE UNTIL AFTER LUNCH. NO QUESTIONS/CONCERNS/COMMENTS AT THIS TIME. LOUIS CLANCY. SRX2.
[2018-07-14 08:05] VITALS: BP 121/71
[2018-07-14 12:26] VITALS: BP 131/66
--- NOTE | 2018-07-14 12:45 | NUR ---
PT IN BED, DENIES ANY NEEDS AT THIS TIME. AGREE WITH LPNS ASSESSMENT. CALL LIGHT IN REACH,NAD NOTED.
--- NOTE | 2018-07-14 18:14 | NUR ---
PT AMBULATED SELF OUT, DID NOT TELL ME HE LEFT. NO SIGN OF HIM.
--- NOTE | 2018-07-15 12:00 | MORECARE ---
CASE MANAGEMENT DISCHARGE SUMMARY PATIENT: STARR GARCIA UNIT: [id number] ADM DATE: 07/10/18 AGE: 32 : 89 SEX: M ROOM/BED: D.2547 AUTHOR: WINSTON MORGAN PHYSICIAN: REFERRING PHYSICIAN: DAVID GRAY MD DATE OF SERVICE: 07/15/18 Discharge Plan Patient Name: STARR GARCIA Facility: [facility]:[place] : 1985 Planned Disposition: Home Anticipated Discharge Date: 07/14/18 Discharge Date: 07/14/2018 Expected LOS: 4 Initial Reviewer: [email or web address] Initial Review Date: 07/10/2018 Generated: 07/15/18 1:00 pm Comments DCP- Discharge Planning Updated by [email or web address]: Sailaja Camarena on 07/11/18 10:[address] Patient Name: STARR GARCIA Admission Status: ER Accout number: [id number] Admission Date: 07-10-2018 : 1985 Admission Diagnosis: Attending: DAVID GRAY Current LOS: 1 Anticipated DC Date: Planned Disposition: Home Primary Insurance: MEDICAID [place] Discharge Planning Comments: CM met with patient at bedside about discharge planning /needs. Patient states he lives with his sister Aline here in town but doesn't know her address or phone number. He gives a contact number [phone] Angel Arriaga (mother) Patient states he doesn't have a phone. Patient states he plans to discharge to his sisters home. States he will have family transport him home upon discharge. Patient states he has a glucometer and insulin supplies. He states he has no other medical equipment. CM asked if he sees a specialist for his diabetes. He stated that he doesn't see anyone for his diabetes other than Dr. Morales. He stated that he would like information regarding gas or petroleum operator CM gave phone number of local gas or petroleum operator.Denies need for home health or other community resource needs. States home environment is safe.Denies any discharge needs or concerns at this time. CM will continue to follow and assist as needed with discharge planning / needs Aix System Administrator: Sailaja Camarena DCPIA - Discharge Planning Initial Assessment Updated by [email or web address]: Sailaja Camarena on 07/11/18 11:28 am * Is the patient Alert and Oriented? Yes * How many steps to enter\exit or inside your home? * PCP [facility] * Pharmacy [facility] * Preadmission Environment Home with Family * ADLs Independent * Equipment Glucometer * List name and contact numbers for known caregivers / representatives who currently or will assist patient after discharge: ANGEL FAROOQ [phone] * Verbal permission to speak to the caregivers and representatives has been obtained from the patient. Yes * Community resources currently utilized None * Additional services required to return to the preadmission environment? No * Can the patient safely return to the preadmission environment? Yes * Has this patient been hospitalized within the prior 30 days at any hospital? Yes Last DP export: 07/11/18 10:03 am Patient Name: STARR GARCIA Page 65919 at 1200 All edits/amendments must be made on the electronic document DICTATION DATE: 07/15/18 1200 LABEL DESIGNER: PHANI 07/15/18 1200 RPT#: [id number] DC DATE:07/14/18 STATUS: DIS IN [facility] [address] [place] [address] END OF REPORT
== END 2018-07-14 18:14 | disposition home or self-care (01) | DRG 639 ==
LOC: D.ER 10:23 → D.CVICU 13:39 → D.EDHOLD 13:39 → D.M2 13:39 → D.CVICU 13:51 → D.M2 07-12 11:20
PROVIDERS: Family Medicine; ADMIT Emergency Medicine; ATTEND Emergency Medicine
DX: E11.10 Type 2 diabetes mellitus with ketoacidosis without coma (principal); E86.0 Dehydration; R11.2 Nausea with vomiting, unspecified; G89.29 Other chronic pain

== ENCOUNTER 2018-08-04 13:06 | Inpatient (IN) | payer MEDICAID ==
[2018-08-04] VITALS (17 sets, daily range): BP systolic 102–139; BP diastolic 77–98; BMI 18.7
[~2018-08-04] VITALS: Ht 162.6 cm; Wt 53.4 kg
--- NOTE | 2018-08-04 13:14 | NUR ---
BLOOD SUGAR 330
[2018-08-04 14:16] LABS: KETONE - SERUM LARGE mg/dL (NEGATIVE)
[2018-08-04 14:28] LABS: ALBUMIN 3.4 g/dL (3.4-5.0); ALKALINE PHOSPHATASE 193 U/L (46-116); ALT (SGPT) 53 U/L (10-68); AMYLASE - SERUM 26 U/L (25-115); BILIRUBIN - TOTAL 1.31 mg/dL (0.2-1.3); CALC OSMOLALITY 287 mosm/kg (275-300); CARBON DIOXIDE 10.8 mmol/L (21.0-32.0); CHLORIDE - SERUM 94 mmol/L (98-107); CREATINE KINASE 48 UL (21-232); CREATININE - SERUM 1.5 mg/dL (0.6-1.3); LIPASE 86 U/L (73-393); MAGNESIUM - SERUM 2.1 mg/dL (1.8-2.4); POTASSIUM - SERUM 4.3 mmol/L (3.5-5.1); PROTEIN - SERUM 6.9 g/dL (6.4-8.2); SODIUM 136 mmol/L (136-145); UREA NITROGEN 14 mg/dL (7-18); eGFR NON AFRICAN AMERICAN 58 mL/min (90-120)
[2018-08-04 14:32] LABS: GLUCOSE 361 mg/dL (74-106)
[2018-08-04 14:43] LABS: BASOPHILS 0.5 % (0-2); EOSINOPHILS 0.1 % (0-7); HEMATOCRIT 46.2 % (42.0-54.0); IMMATURE GRANULOCYTES 0.8 % (0-5); LYMPHOCYTES 11.3 % (15-50); MCH 30.9 pg (26.0-34.0); MCHC 34.6 g/dL (31.0-37.0); MCV 89.2 fL (80.0-100.0); MEAN PLATELET VOLUME 11.2 fL (7.4-10.4); MONOCYTES 5.1 % (2-11); NEUTROPHILS 82.2 % (40-80); RBC 5.18 10x6/uL (4.20-6.10); RDW 13.8 % (11.5-14.5); WBC 7.6 10x3/uL (4.8-10.8)
[2018-08-04 14:44] LABS: PLATELET COUNT 336 10x3/uL (130-400)
--- NOTE | 2018-08-04 15:45 | NUR ---
LAC PIV IS VERY POSITIONAL AND NOT WANTING TO RUN ON PUMP. REPOSITIONED AND RESUCURED WITH TAPE.
[2018-08-04 15:54] LABS: APPEARANCE CLEAR (CLEAR); BILIRUBIN NEGATIVE (NEGATIVE); COLOR YELLOW (YELLOW); GLUCOSE 1000 mg/dL (NEGATIVE); KETONE LARGE mg/dL (NEGATIVE); NITRITE NEGATIVE (NEGATIVE); PROTEIN NEGATIVE (NEGATIVE); SPECIFIC GRAVITY 1.025 (1.005-1.020); UROBILINOGEN NORMAL (NORMAL)
[2018-08-04 16:53] LABS: ANION GAP 32.1 mmol/L (8-16); CARBON DIOXIDE 10.3 mmol/L (21.0-32.0); CREATININE - SERUM 1.4 mg/dL (0.6-1.3); MAGNESIUM - SERUM 1.9 mg/dL (1.8-2.4); POTASSIUM - SERUM 3.4 mmol/L (3.5-5.1)
--- NOTE | 2018-08-04 19:11 | NUR ---
FSBS - 84. INSULIN DRIP ON HOLD.
--- NOTE | 2018-08-04 19:33 | MORECARE ---
CASE MANAGEMENT DISCHARGE SUMMARY PATIENT: STARR GARCIA UNIT: [id number] ADM DATE: 08/04/18 AGE: 32 : 89 SEX: M ROOM/BED: D.2309 AUTHOR: EDDIEDOC PHYSICIAN: REFERRING PHYSICIAN: JANNETH PÉREZ MD DATE OF SERVICE: 08/04/18 Discharge Plan Patient Name: STARR GARCIA Facility: [facility]:[place] : 1985 Planned Disposition: Anticipated Discharge Date: 08/06/18 Discharge Date: Expected LOS: 2 Initial Reviewer: [email or web address] Initial Review Date: 08/04/2018 Generated: 08/04/18 8:33 pm Comments DCP- Discharge Planning Updated by [email or web address]: Arelis Barillas on 08/04/18 6:[address] Patient Name: STARR GARCIA Admission Status: ER Accout number: [id number] Admission Date: 08-04-2018 : 1985 Admission Diagnosis: Attending: JANNETH PÉREZ Current LOS: 1 Anticipated DC Date: 08-06-2018 Planned Disposition: Primary Insurance: MEDICAID [place] Discharge Planning Comments: CM met with patient to complete initial dc planning assessment. CM educated patient on the CM role and verbal consent given by patient to complete assessment. Patient lives at his sister house and reports he is independent in his care. He reports he did not get his strips. At discharge patient plans to return to his sisters house and here and there and feels this is a safe discharge. CM discussed availability of home health, rehab services, and medical equipment. Patient denied known discharge needs at this time. CM will continue to follow and will assist as needed with dc plans/needs. Card Grader: Arelis Barillas RN, [facility] DCPIA - Discharge Planning Initial Assessment Updated by [email or web address]: Arelis Barillas on 08/04/18 7:31 pm * Is the patient Alert and Oriented? Yes * How many steps to enter\exit or inside your home? * PCP Dr. Morales but he is changing. * Pharmacy [facility] * Preadmission Environment Home with Family * ADLs Independent * Equipment Glucometer * Other Equipment Non compliant with diabetes management * List name and contact numbers for known caregivers / representatives who currently or will assist patient after discharge: Diana Arriaga - mother - [phone] * Verbal permission to speak to the caregivers and representatives has been obtained from the patient. Yes * Community resources currently utilized None * Additional services required to return to the preadmission environment? No * Can the patient safely return to the preadmission environment? Yes * Has this patient been hospitalized within the prior 30 days at any hospital? Yes Patient Name: STARR GARCIA Page 70103 at 1933 All edits/amendments must be made on the electronic document DICTATION DATE: 08/04/181931 SPIRAL TUBE WINDER HELPER: PHANI 08/04/181931 RPT#: [id number] DC DATE: STATUS: ADM IN [facility] [address] [place] [address] END OF REPORT
--- NOTE | 2018-08-04 19:38 | NUR ---
REPORT RECEIVED FROM [facility] ER, PT TRXF TO UNIT WITH ARMORED TRANSPORT SERVICE MANAGER AT BEDSIDE, PT AAOx4, ANSWERS ALL QUESTIONS, BILAT 20g FA PIV, INSULIN DRIP CLAMPED OFF PRIOR TO ARRIVAL D/T FSBG OF 84, HOURLY FSBG MONITORING, PT MOVES ALL EXTREMITIES EQUAL, PT C/O ABDOMINAL PAIN THAT PT STATES " FEELS LIKE THROBBING AND ACHING", PLACED ON ICU MONITORS, VSS, FSBG CHECKED 99mg/dL, WILL CONTINUE TO MONITOR
[2018-08-04 20:56] LABS: CALCIUM 7.9 mg/dL (8.5-10.1); CHLORIDE - SERUM 102 mmol/L (98-107); CREATININE - SERUM 1.1 mg/dL (0.6-1.3); MAGNESIUM - SERUM 1.8 mg/dL (1.8-2.4); POTASSIUM - SERUM 3.6 mmol/L (3.5-5.1); SODIUM 138 mmol/L (136-145); UREA NITROGEN 13 mg/dL (7-18); eGFR NON AFRICAN AMERICAN 83 mL/min (90-120)
[2018-08-04 21:02] LABS: CALC OSMOLALITY 278 mosm/kg (275-300); CARBON DIOXIDE 17.9 mmol/L (21.0-32.0); GLUCOSE 145 mg/dL (74-106)
--- NOTE | 2018-08-04 22:47 | NUR ---
CALLED, UPDATE GIVEN ON PT, INFORMED OF PATIENTS PAIN, ORDERED TYLENOL
--- NOTE | 2018-08-04 23:18 | NUR ---
PT REFUSING TYLENOL FOR PAIN CONTROL, PT STATES " THATS NOT GOING TO DO ANYTHING FOR ME" AND REFUSED MEDICATION. VSS WILL CONTINUE TO MONITOR
[2018-08-05] VITALS (24 sets, daily range): BP systolic 99–129; BP diastolic 62–93; Ht 162.6 cm; Wt 53.4 kg
--- NOTE | 2018-08-05 01:00 | NUR ---
PT RESTING IN BED OPENS EYES TO VERBAL STEMULI, AAOx4, VSS, DENIES NEED AT THIS TIME, WILL CONTINUE TO MONITOR
--- NOTE | 2018-08-05 03:00 | NUR ---
REASSESSMENT COMPLETE SEE FLOW SHEET, NO ACUTE CHANGE NOTED, PT SLEEPING ABLE TO WAKE WITH MINIMAL VERBAL STIMULI, NO S/S OF ACUTE DISTRESS, PT FREQUENTLY REPOSITIONES WITHOUT ASSIST, PT AAOx4, VSS, MEDS PER MAR/ORDERS, WILL CONTINUE TO MONITOR
[2018-08-05 04:28] LABS: BASOPHILS 0.4 % (0-2); HEMATOCRIT 38.7 % (42.0-54.0); HEMOGLOBIN 13.1 g/dL (13.5-17.5); IMMATURE GRANULOCYTES 0.6 % (0-5); LYMPHOCYTES 32.1 % (15-50); MCH 30.4 pg (26.0-34.0); MCHC 33.9 g/dL (31.0-37.0); MCV 89.8 fL (80.0-100.0); NEUTROPHILS 53.9 % (40-80); RBC 4.31 10x6/uL (4.20-6.10); RDW 13.8 % (11.5-14.5); WBC 7.7 10x3/uL (4.8-10.8)
[2018-08-05 04:41] LABS: PLATELET COUNT 230 10x3/uL (130-400)
[2018-08-05 04:46] LABS: ALKALINE PHOSPHATASE 141 U/L (46-116); BILIRUBIN - TOTAL 0.98 mg/dL (0.2-1.3); CALC OSMOLALITY 274 mosm/kg (275-300); CALCIUM 7.8 mg/dL (8.5-10.1); CARBON DIOXIDE 19.9 mmol/L (21.0-32.0); CHLORIDE - SERUM 103 mmol/L (98-107); GLUCOSE 126 mg/dL (74-106); POTASSIUM - SERUM 3.1 mmol/L (3.5-5.1); PROTEIN - SERUM 5.5 g/dL (6.4-8.2); SODIUM 137 mmol/L (136-145); UREA NITROGEN 11 mg/dL (7-18); eGFR NON AFRICAN AMERICAN > 90 mL/min (90-120)
[2018-08-05 04:49] LABS: ALBUMIN 2.5 g/dL (3.4-5.0); ALT (SGPT) 39 U/L (10-68)
--- NOTE | 2018-08-05 07:00 | NUR ---
RECIEVED BEDSIDE REPORT ON PATIENT AND ASSUMED CARE. PATIENT RESTING QUIELTY, VSS. HEAD TO TOE ASSESSMENT COMPLETED. IVS 20 GA TO LT AC INFUSING W/O S/S OF INFILTRATION, KCL 10 MEQ AT 100 CC/HR AND NS AT 100 CC/HR. INSULIN GTT DISCONTINUED BY NIGHT RN. WILL OBTAIN FSBS AT 0800. MORNING LABS OBTAINED AND SENT. LAST ANION GAP WAS 17.2. WILL CONTINUE TO MONITOR.
--- NOTE | 2018-08-05 08:00 | NUR ---
FSBS - 310, INSULIN GTT RESTARTED AT 9.8 CC/HR PER PROTOCOL. AND DR. PFEIFFER NOTIFIED.
--- NOTE | 2018-08-05 09:00 | NUR ---
FSBS - 256, INSULIN GTT DECREASED TO 7.4 CC/HR PER PROTOCOL. MORNING LABS RETURNED, ANION GAP NOW 19.6.
[2018-08-05 09:11] LABS: CARBON DIOXIDE 18.1 mmol/L (21.0-32.0); CHLORIDE - SERUM 100 mmol/L (98-107); MAGNESIUM - SERUM 1.7 mg/dL (1.8-2.4); SODIUM 134 mmol/L (136-145); UREA NITROGEN 10 mg/dL (7-18); eGFR NON AFRICAN AMERICAN > 90 mL/min (90-120)
[2018-08-05 09:14] LABS: CALC OSMOLALITY 278 mosm/kg (275-300); GLUCOSE 310 mg/dL (74-106); POTASSIUM - SERUM 3.7 mmol/L (3.5-5.1)
--- NOTE | 2018-08-05 09:15 | NUR ---
DR. PFEIFFER AT ROOM UPDATED AND EXAMINES PATIENT. ADVISED TO CONTINUE INSULIN GTT PER PROTOCOL AND ONCE METABOLICALLY STABLE TO CONTACT FOR ORDER FOR BASAL INSULING AND SLIDING SCALE INSULIN. PATIENT RESTING QUIETLY, VSS.
--- NOTE | 2018-08-05 10:10 | NUR ---
FSBS - 176, INSULIN GTT DECREASED TO 4.6 CC/HR PER PROTOCOL.
--- NOTE | 2018-08-05 11:00 | NUR ---
REASSESSMENT COMPLETED. VSS. PATIENT RESTING QUIETLY. FSBS - 119, INSULIN GTT DECREASED TO 1.8 UNITS/HR PER PROTOCOL WILL CONTINUE TO MONITOR.
--- NOTE | 2018-08-05 12:07 | NUR ---
FSBS - 91, INSULIN DECREASED TO 0.9 PER PROTOCOL. PATIENT RESTING QUIETLY, VSS. WILL CONTINUE TO MONITOR.
--- NOTE | 2018-08-05 13:05 | NUR ---
FSBS - 109, INSULIN GTT INCREASED TO 1.5 UNITS/HR PER PROTOCOL. LAB AT ROOM TO GET REPEAT K AND BMP.
[2018-08-05 13:29] LABS: CALC OSMOLALITY 275 mosm/kg (275-300); CALCIUM 8.2 mg/dL (8.5-10.1); CARBON DIOXIDE 21.5 mmol/L (21.0-32.0); CHLORIDE - SERUM 105 mmol/L (98-107); CREATININE - SERUM 0.9 mg/dL (0.6-1.3); GLUCOSE 116 mg/dL (74-106); POTASSIUM - SERUM 3.6 mmol/L (3.5-5.1); SODIUM 138 mmol/L (136-145); UREA NITROGEN 9 mg/dL (7-18); eGFR NON AFRICAN AMERICAN > 90 mL/min (90-120)
--- NOTE | 2018-08-05 13:47 | NUR ---
SPOKE TO DR. PFEIFFER AND ADVISED OF RESULTS OF BMP, ADVISED TO SWITCH PATIENT FROM IV INSULIN GTT TO NPH 70/30 20 UNITS BID AND NOVOLOG INTERMEDIATE SLIDING SCALE INSULIN ACHS SQ WITH FSBS ACHS. TO START CLEAR LIQUID DIET.
--- NOTE | 2018-08-05 15:09 | NUR ---
REASSESSMENT COMPLETE. VSS. GIVEN DIET LEMON-SEMINOLE SODA AND JELLO FOR SNACK. NO NEEDS VOICED AT THIS TIME WILL CONTINUE TO MONITOR.
--- NOTE | 2018-08-05 17:09 | NUR ---
PATIENT GIVEN DINNER TRAY. VSS. NO NEEDS AT THIS TIME.
[2018-08-05 17:30] LABS: CALC OSMOLALITY 271 mosm/kg (275-300); CALCIUM 7.7 mg/dL (8.5-10.1); CARBON DIOXIDE 21.3 mmol/L (21.0-32.0); CHLORIDE - SERUM 104 mmol/L (98-107); CREATININE - SERUM 1.1 mg/dL (0.6-1.3); GLUCOSE 100 mg/dL (74-106); POTASSIUM - SERUM 3.1 mmol/L (3.5-5.1); SODIUM 137 mmol/L (136-145); UREA NITROGEN 8 mg/dL (7-18); eGFR NON AFRICAN AMERICAN 83 mL/min (90-120)
--- NOTE | 2018-08-05 17:40 | NUR ---
PATIENTS K - 3.1, GIVEN 40 MEQ K PO PER ELECTROLYTE PROTOCOL, WILL HAVE REPEAT BMP IN 4 HRS.
[2018-08-05 21:49] LABS: CALC OSMOLALITY 273 mosm/kg (275-300); CALCIUM 7.7 mg/dL (8.5-10.1); CARBON DIOXIDE 24.6 mmol/L (21.0-32.0); CHLORIDE - SERUM 104 mmol/L (98-107); CREATININE - SERUM 0.9 mg/dL (0.6-1.3); GLUCOSE 103 mg/dL (74-106); POTASSIUM - SERUM 3.2 mmol/L (3.5-5.1); SODIUM 138 mmol/L (136-145); UREA NITROGEN 6 mg/dL (7-18); eGFR NON AFRICAN AMERICAN > 90 mL/min (90-120)
[2018-08-06] VITALS (11 sets, daily range): BP systolic 95–118; BP diastolic 62–89
[2018-08-06 04:24] LABS: BASOPHILS 0.3 % (0-2); HEMATOCRIT 40.2 % (42.0-54.0); HEMOGLOBIN 13.8 g/dL (13.5-17.5); IMMATURE GRANULOCYTES 0.7 % (0-5); LYMPHOCYTES 33.6 % (15-50); MCH 30.9 pg (26.0-34.0); MCHC 34.3 g/dL (31.0-37.0); MCV 90.1 fL (80.0-100.0); MEAN PLATELET VOLUME 11.6 fL (7.4-10.4); MONOCYTES 6.7 % (2-11); NEUTROPHILS 54.7 % (40-80); PLATELET COUNT 214 10x3/uL (130-400); RBC 4.46 10x6/uL (4.20-6.10); RDW 13.9 % (11.5-14.5)
[2018-08-06 04:53] LABS: ALBUMIN 2.5 g/dL (3.4-5.0); ALKALINE PHOSPHATASE 150 U/L (46-116); ALT (SGPT) 47 U/L (10-68); BILIRUBIN - TOTAL 0.75 mg/dL (0.2-1.3); CARBON DIOXIDE 24.5 mmol/L (21.0-32.0); CHLORIDE - SERUM 103 mmol/L (98-107); CREATININE - SERUM 0.7 mg/dL (0.6-1.3); PROTEIN - SERUM 5.6 g/dL (6.4-8.2); SODIUM 136 mmol/L (136-145); UREA NITROGEN 6 mg/dL (7-18); eGFR NON AFRICAN AMERICAN > 90 mL/min (90-120)
[2018-08-06 04:59] LABS: CALC OSMOLALITY 278 mosm/kg (275-300); GLUCOSE 267 mg/dL (74-106); POTASSIUM - SERUM 4.1 mmol/L (3.5-5.1)
--- NOTE | 2018-08-06 07:00 | NUR ---
REPORT RECEIVED. ASSESSMENT COMPLETE PER FLOW SHEET. VSS. NO NEW CHANGES PT RESTING COMFORTABLY WILL CONTINUE TO MONITOR
--- NOTE | 2018-08-06 09:48 | NUR ---
NUTRITION MONITORING AND EVAL DIET ADVANCED TO REG DIABETIC. NOTE POSSIBLE MOVE TO FLOOR. WILL CONTINUE TO PROVIDE DIET, MONITOR PO INTAKE. RD FOLLOWING
--- NOTE | 2018-08-06 16:50 | NUR ---
FSBS 495. GIVEN 20 UNITS 70/30 AND 10 UNITS REGULAR SUBQ. PATIENT AFRAID HE WOULD BOTTOM OUT WITH MORE. WILL MONITOR.
--- NOTE | 2018-08-06 18:00 | NUR ---
FSBS 420. WILL RECHECK IN ONE HOUR.
--- NOTE | 2018-08-06 18:47 | NUR ---
ATE ALL OF SUPPER. UP TO SHOWER PER SELF WITH SET UP ASSISTANCE. DENIES NEEDS. NO CHANGES AT THIS TIME.
[2018-08-07 05:09] VITALS: BP 113/77
[2018-08-07 06:39] LABS: BASOPHILS 0.6 % (0-2); EOSINOPHILS 5.2 % (0-7); HEMATOCRIT 36.7 % (42.0-54.0); HEMOGLOBIN 12.3 g/dL (13.5-17.5); IMMATURE GRANULOCYTES 0.7 % (0-5); LYMPHOCYTES 29.7 % (15-50); MCH 30.4 pg (26.0-34.0); MCHC 33.5 g/dL (31.0-37.0); MCV 90.6 fL (80.0-100.0); MEAN PLATELET VOLUME 11.5 fL (7.4-10.4); MONOCYTES 9.7 % (2-11); NEUTROPHILS 54.1 % (40-80); PLATELET COUNT 180 10x3/uL (130-400); RBC 4.05 10x6/uL (4.20-6.10); RDW 13.7 % (11.5-14.5); WBC 5.4 10x3/uL (4.8-10.8)
[2018-08-07 06:53] LABS: ALBUMIN 2.2 g/dL (3.4-5.0); ALKALINE PHOSPHATASE 152 U/L (46-116); BILIRUBIN - TOTAL 0.35 mg/dL (0.2-1.3); CALCIUM 7.9 mg/dL (8.5-10.1); CHLORIDE - SERUM 101 mmol/L (98-107); CREATININE - SERUM 0.7 mg/dL (0.6-1.3); PROTEIN - SERUM 5.3 g/dL (6.4-8.2); SODIUM 139 mmol/L (136-145); eGFR NON AFRICAN AMERICAN > 90 mL/min (90-120)
[2018-08-07 06:54] LABS: ALT (SGPT) 60 U/L (10-68); CALC OSMOLALITY 279 mosm/kg (275-300); GLUCOSE 119 mg/dL (74-106); POTASSIUM - SERUM 3.4 mmol/L (3.5-5.1); UREA NITROGEN 15 mg/dL (7-18)
[2018-08-07 09:35] VITALS: BP 117/81
[2018-08-07 13:58] VITALS: BP 101/68
--- NOTE | 2018-08-07 17:00 | NUR ---
PATIENT RECIEVED DC INSTRUCTIONS AND PRESCRIPTION. VERBALIZED UNDERSTANDING. NO QUESTIONS AT THIS TIME. IV REMOVED WITH CATH TIP INTACT. AWAITING TRANSPORTATION FOR DC.
[2018-08-07 18:01] VITALS: BP 105/72
--- NOTE | 2018-08-07 18:29 | NUR ---
PATIENT AMBULATED OUT OF HOSPITAL WITH PERSONAL BELONGINGS TO PRIVATE VEHICLE.
--- NOTE | 2018-08-09 00:11 | MORECARE ---
CASE MANAGEMENT DISCHARGE SUMMARY PATIENT: STARR GARCIA UNIT: [id number] ADM DATE: 08/04/18 AGE: 32 : 89 SEX: M ROOM/BED: D.2208 AUTHOR: EDDIE,DOC PHYSICIAN: REFERRING PHYSICIAN: JANNETH PÉREZ MD DATE OF SERVICE: 08/09/18 Discharge Plan Patient Name: STARR GARCIA Facility: [facility]:[place] : 1985 Planned Disposition: Anticipated Discharge Date: 08/06/18 Discharge Date: 08/07/2018 Expected LOS: 2 Initial Reviewer: [email or web address] Initial Review Date: 08/04/2018 Generated: 08/09/18 1:11 am DCP- Discharge Planning Updated by [email or web address]: Arelis Barillas on 08/04/18 6:[address] Patient Name: STARR GARCIA Admission Status: ER Accout number: [id number] Admission Date: 08-04-2018 : 1985 Admission Diagnosis: Attending: JANNETH PÉREZ Current LOS: 1 Anticipated DC Date: 08-06-2018 Planned Disposition: Primary Insurance: MEDICAID [place] Discharge Planning Comments: CM met with patient to complete initial dc planning assessment. CM educated patient on the CM role and verbal consent given by patient to complete assessment. Patient lives at his sister house and reports he is independent in his care. He reports he did not get his strips. At discharge patient plans to return to his [place] house and here and there and feels this is a safe discharge. CM discussed availability of home health, rehab services, and medical equipment. Patient denied known discharge needs at this time. CM will continue to follow and will assist as needed with dc plans/needs. Yardage Caller: Arelis Barillas RN, [facility] DCPIA - Discharge Planning Initial Assessment Updated by [id number]: Arelis Barillas on 08/04/18 7:31 pm * Is the patient Alert and Oriented? Yes * How many steps to enter\exit or inside your home? * PCP Dr. Morales but he is changing. * Pharmacy [facility] * Preadmission Environment Home with Family * ADLs Independent * Equipment Glucometer * Other Equipment Non compliant with diabetes management * List name and contact numbers for known caregivers / representatives who currently or will assist patient after discharge: Diana benitez - [phone] * Verbal permission to speak to the caregivers and representatives has been obtained from the patient. Yes * Community resources currently utilized None * Additional services required to return to the preadmission environment? No * Can the patient safely return to the preadmission environment? Yes * Has this patient been hospitalized within the prior 30 days at any hospital? Yes Last DP export: 08/04/18 6:33 p Patient Name: STARR GARCIA Page 47969 at 0011 All edits/amendments must be made on the electronic document DICTATION DATE: 08/09/1810 RADIOGRAPHER ANGIOGRAM: PHANI 08/09/1810 RPT#: [id number] DC DATE:08/07/18 STATUS: DIS IN [facility] [address] [place] [address] END OF REPORT
== END 2018-08-07 18:30 | disposition home or self-care (01) | DRG 637 ==
LOC: D.ER 13:06 → D.EDHOLD 17:00 → D.ICU 17:00 → D.MS 08-06 16:24
PROVIDERS: Family Medicine; ADMIT Internal Medicine Nephrology; ATTEND Internal Medicine Nephrology
DX: E11.10 Type 2 diabetes mellitus with ketoacidosis without coma (principal); G92 Toxic encephalopathy; E87.2 Acidosis; N17.9 Acute kidney failure, unspecified; E87.6 Hypokalemia; E86.0 Dehydration; K21.9 Gastro-esophageal reflux disease without esophagitis; F15.10 Other stimulant abuse, uncomplicated

== ENCOUNTER 2018-08-19 12:56 | Inpatient (IN) | payer MEDICAID ==
[2018-08-19 13:52] LABS: BASOPHILS 0.5 % (0-2); EOSINOPHILS 0.2 % (0-7); HEMATOCRIT 45.3 % (42.0-54.0); HEMOGLOBIN 15.5 g/dL (13.5-17.5); IMMATURE GRANULOCYTES 2.3 % (0-5); MCH 30.8 pg (26.0-34.0); MCHC 34.2 g/dL (31.0-37.0); MCV 89.9 fL (80.0-100.0); MEAN PLATELET VOLUME 10.5 fL (7.4-10.4); RBC 5.04 10x6/uL (4.20-6.10); RDW 14.1 % (11.5-14.5); WBC 9.6 10x3/uL (4.8-10.8)
[2018-08-19 13:53] LABS: PLATELET COUNT 329 10x3/uL (130-400)
[2018-08-19 13:57] LABS: KETONE - SERUM MODERATE mg/dL (NEGATIVE)
[2018-08-19 14:06] LABS: ALBUMIN 2.8 g/dL (3.4-5.0); ALKALINE PHOSPHATASE 228 U/L (46-116); ALT (SGPT) 71 U/L (10-68); BILIRUBIN - TOTAL 0.74 mg/dL (0.2-1.3); CALC OSMOLALITY 299 mosm/kg (275-300); CALCIUM 9.4 mg/dL (8.5-10.1); CARBON DIOXIDE 11.8 mmol/L (21.0-32.0); CHLORIDE - SERUM 102 mmol/L (98-107); CREATININE - SERUM 1.5 mg/dL (0.6-1.3); GLUCOSE 396 mg/dL (74-106); MAGNESIUM - SERUM 1.8 mg/dL (1.8-2.4); POTASSIUM - SERUM 4.1 mmol/L (3.5-5.1); PROTEIN - SERUM 6.5 g/dL (6.4-8.2); SODIUM 142 mmol/L (136-145); UREA NITROGEN 13 mg/dL (7-18); eGFR NON AFRICAN AMERICAN 58 mL/min (90-120)
[2018-08-19 15:17] LABS: APPEARANCE CLEAR (CLEAR); BILIRUBIN NEGATIVE (NEGATIVE); COLOR YELLOW (YELLOW); GLUCOSE 1000 mg/dL (NEGATIVE); KETONE LARGE mg/dL (NEGATIVE); NITRITE NEGATIVE (NEGATIVE); PROTEIN NEGATIVE (NEGATIVE); SPECIFIC GRAVITY 1.025 (1.005-1.020); UROBILINOGEN NORMAL (NORMAL)
--- NOTE | 2018-08-19 16:11 | MORECARE ---
CASE MANAGEMENT DISCHARGE SUMMARY PATIENT: STARR GARCIA UNIT: [id number] ADM DATE: 08/19/18 AGE: 33 : [birth year] SEX: M ROOM/BED: D.2302 AUTHOR: WINSTON MORGAN PHYSICIAN: REFERRING PHYSICIAN: JANNETH PÉREZ MD DATE OF SERVICE: 08/19/18 Discharge Plan Patient Name: STARR GARCIA Facility: [facility]:[place] : 1985 Planned Disposition: Home Anticipated Discharge Date: 08/22/18 Discharge Date: Expected LOS: 3 Initial Reviewer: [email or web address] Initial Review Date: 08/19/2018 Generated: 08/19/18 5:11 pm DCP- Discharge Planning Updated by [id number]: Arelis Barillas on 08/19/18 3:[address] Patient Name: STARR GARCIA Admission Status: ER Accout number: [id number] Admission Date: 08-19-2018 : 1985 Admission Diagnosis: Attending: JANNETH PÉREZ Current LOS: 1 Anticipated DC Date: 08-22-2018 Planned Disposition: Home Primary Insurance: MEDICAID [place] Discharge Planning Comments: CM met with patient to complete initial dc planning assessment. CM educated patient on the CM role and verbal consent given by patient to complete assessment. Patient lives at home with his mother. At discharge patient plans to return home and feels this is a safe discharge. CM discussed availability of home health, rehab services, and medical equipment. Patient is non compliant in his care and has frequent readmissions. Patient denied known discharge needs at this time. CM will continue to follow and will assist as needed with dc plans/needs. Nuclear Fuels Reclamation Engineer: Arelis Barillas RN, [facility] DCPIA - Discharge Planning Initial Assessment Updated by [email or web address]: Arelis Barillas on 08/19/18 4:06 pm * Is the patient Alert and Oriented? Yes * How many steps to enter\exit or inside your home? * PCP Dr. Morales * Pharmacy [facility] * Preadmission Environment Home with Family * ADLs Independent * Equipment Glucometer * List name and contact numbers for known caregivers / representatives who currently or will assist patient after discharge: Diana Arriaga - mother - [phone] * Verbal permission to speak to the caregivers and representatives has been obtained from the patient. Yes * Community resources currently utilized None * Additional services required to return to the preadmission environment? No * Can the patient safely return to the preadmission environment? Yes * Has this patient been hospitalized within the prior 30 days at any hospital? Yes Patient Name: STARR GARCIA Page 64308 at 1611 All edits/amendments must be made on the electronic document DICTATION DATE: 08/19/181610 SALES DEPARTMENT CLERK: PHANI 08/19/181610 RPT#: [id number] DC DATE: STATUS: ADM IN [facility] [address] [place] [address] END OF REPORT
[2018-08-19 16:34] LABS: UDS - AMPHET NEGATIVE QUAL (NEGATIVE); UDS - BARB NEGATIVE QUAL (NEGATIVE); UDS - BENZO NEGATIVE QUAL (NEGATIVE); UDS - COCAINE NEGATIVE QUAL (NEGATIVE); UDS - OPIATE NEGATIVE QUAL (NEGATIVE); UDS - PCP NEGATIVE QUAL (NEGATIVE); UDS - THC NEGATIVE QUAL (NEGATIVE)
[2018-08-19 19:00] VITALS: BP 112/70
[2018-08-19 20:00] VITALS: BP 98/76
[2018-08-19 20:10] LABS: ALBUMIN 2.3 g/dL (3.4-5.0); ALKALINE PHOSPHATASE 181 U/L (46-116); ALT (SGPT) 56 U/L (10-68); BILIRUBIN - TOTAL 0.65 mg/dL (0.2-1.3); CALCIUM 7.6 mg/dL (8.5-10.1); CHLORIDE - SERUM 109 mmol/L (98-107); CKMB 0.4 U/L (0.0-3.6); CREATINE KINASE 32 UL (21-232); PROTEIN - SERUM 5.1 g/dL (6.4-8.2); SODIUM 143 mmol/L (136-145)
[2018-08-19 20:13] LABS: CALC OSMOLALITY 291 mosm/kg (275-300); CARBON DIOXIDE 17.1 mmol/L (21.0-32.0); CREATININE - SERUM 0.9 mg/dL (0.6-1.3); GLUCOSE 262 mg/dL (74-106); UREA NITROGEN 8 mg/dL (7-18); eGFR NON AFRICAN AMERICAN > 90 mL/min (90-120)
[2018-08-19 21:00] VITALS: BP 101/961
[2018-08-19 22:00] VITALS: BP 108/65
[2018-08-19 23:00] VITALS: BP 112/78
[2018-08-20] VITALS (17 sets, daily range): BP systolic 88–138; BP diastolic 52–91; BMI 19.7; BMI 19.6
[2018-08-20 00:51] LABS: HEMOGLOBIN 12.6 g/dL (13.5-17.5); LYMPHOCYTES 28.2 % (15-50); MCH 32.3 pg (26.0-34.0); MCHC 34.9 g/dL (31.0-37.0); MEAN PLATELET VOLUME 10.7 fL (7.4-10.4); NEUTROPHILS 65.8 % (40-80); RDW 13.9 % (11.5-14.5)
[2018-08-20 00:53] LABS: HEMATOCRIT 36.1 % (42.0-54.0); MCV 92.6 fL (80.0-100.0); PLATELET COUNT 262 10x3/uL (130-400); WBC 6.9 10x3/uL (4.8-10.8)
[2018-08-20 01:01] LABS: ALBUMIN 2.1 g/dL (3.4-5.0); ALKALINE PHOSPHATASE 167 U/L (46-116); ALT (SGPT) 55 U/L (10-68); BILIRUBIN - TOTAL 0.48 mg/dL (0.2-1.3); CALCIUM 7.6 mg/dL (8.5-10.1); CARBON DIOXIDE 14.5 mmol/L (21.0-32.0); CHLORIDE - SERUM 110 mmol/L (98-107); PROTEIN - SERUM 5.1 g/dL (6.4-8.2); SODIUM 144 mmol/L (136-145); UREA NITROGEN 8 mg/dL (7-18)
[2018-08-20 01:02] LABS: CALC OSMOLALITY 288 mosm/kg (275-300); CREATININE - SERUM 1.2 mg/dL (0.6-1.3); GLUCOSE 171 mg/dL (74-106); eGFR NON AFRICAN AMERICAN 75 mL/min (90-120)
[2018-08-20 01:03] LABS: POTASSIUM - SERUM 2.9 mmol/L (3.5-5.1)
[2018-08-20 07:24] LABS: BASOPHILS 0.6 % (0-2); EOSINOPHILS 2.3 % (0-7); HEMATOCRIT 35.7 % (42.0-54.0); HEMOGLOBIN 12.1 g/dL (13.5-17.5); IMMATURE GRANULOCYTES 3.6 % (0-5); MCH 30.2 pg (26.0-34.0); MCHC 33.9 g/dL (31.0-37.0); MEAN PLATELET VOLUME 10.3 fL (7.4-10.4); MONOCYTES 7.8 % (2-11); NEUTROPHILS 53.7 % (40-80); PLATELET COUNT 311 10x3/uL (130-400); RBC 4.01 10x6/uL (4.20-6.10); RDW 14.2 % (11.5-14.5); WBC 6.9 10x3/uL (4.8-10.8)
[2018-08-20 07:37] LABS: ALBUMIN 2.1 g/dL (3.4-5.0); ALKALINE PHOSPHATASE 164 U/L (46-116); ALT (SGPT) 50 U/L (10-68); BILIRUBIN - TOTAL 0.62 mg/dL (0.2-1.3); CALCIUM 7.5 mg/dL (8.5-10.1); CHLORIDE - SERUM 112 mmol/L (98-107); CREATININE - SERUM 0.9 mg/dL (0.6-1.3); PROTEIN - SERUM 4.9 g/dL (6.4-8.2); SODIUM 145 mmol/L (136-145); UREA NITROGEN 8 mg/dL (7-18); eGFR NON AFRICAN AMERICAN > 90 mL/min (90-120)
[2018-08-20 07:38] LABS: CALC OSMOLALITY 287 mosm/kg (275-300); CARBON DIOXIDE 21.4 mmol/L (21.0-32.0); GLUCOSE 112 mg/dL (74-106)
[2018-08-21] VITALS: BP 115/83
[2018-08-21 01:02] LABS: HEMATOCRIT 32.4 % (42.0-54.0); HEMOGLOBIN 11.3 g/dL (13.5-17.5); MCH 31.7 pg (26.0-34.0); MCHC 34.9 g/dL (31.0-37.0); MCV 90.8 fL (80.0-100.0); MEAN PLATELET VOLUME 9.5 fL (7.4-10.4); NEUTROPHILS 58.8 % (40-80); PLATELET COUNT 273 10x3/uL (130-400); RBC 3.57 10x6/uL (4.20-6.10); RDW 14.1 % (11.5-14.5); WBC 5.8 10x3/uL (4.8-10.8)
[2018-08-21 01:28] LABS: ALKALINE PHOSPHATASE 169 U/L (46-116); BILIRUBIN - TOTAL 0.25 mg/dL (0.2-1.3); CALCIUM 7.3 mg/dL (8.5-10.1); CHLORIDE - SERUM 108 mmol/L (98-107); PROTEIN - SERUM 4.8 g/dL (6.4-8.2); SODIUM 142 mmol/L (136-145)
[2018-08-21 01:37] LABS: ALT (SGPT) 70 U/L (10-68); CALC OSMOLALITY 287 mosm/kg (275-300); CREATININE - SERUM 1.2 mg/dL (0.6-1.3); GLUCOSE 177 mg/dL (74-106); POTASSIUM - SERUM 3.1 mmol/L (3.5-5.1); UREA NITROGEN 14 mg/dL (7-18); eGFR NON AFRICAN AMERICAN 75 mL/min (90-120)
[2018-08-21 04:00] VITALS: BP 113/71
[2018-08-21 08:15] LABS: BASOPHILS 0.5 % (0-2); EOSINOPHILS 2.6 % (0-7); HEMATOCRIT 37.2 % (42.0-54.0); HEMOGLOBIN 12.5 g/dL (13.5-17.5); IMMATURE GRANULOCYTES 3.1 % (0-5); LYMPHOCYTES 32.5 % (15-50); MCH 30.1 pg (26.0-34.0); MCHC 33.6 g/dL (31.0-37.0); MCV 89.6 fL (80.0-100.0); MEAN PLATELET VOLUME 10.3 fL (7.4-10.4); MONOCYTES 8.8 % (2-11); NEUTROPHILS 52.5 % (40-80); PLATELET COUNT 277 10x3/uL (130-400); RBC 4.15 10x6/uL (4.20-6.10); RDW 14.4 % (11.5-14.5); WBC 5.5 10x3/uL (4.8-10.8)
[2018-08-21 08:26] LABS: ALBUMIN 2.3 g/dL (3.4-5.0); ALKALINE PHOSPHATASE 195 U/L (46-116); ALT (SGPT) 76 U/L (10-68); BILIRUBIN - TOTAL 0.39 mg/dL (0.2-1.3); CALC OSMOLALITY 282 mosm/kg (275-300); CALCIUM 7.6 mg/dL (8.5-10.1); CARBON DIOXIDE 29.5 mmol/L (21.0-32.0); CHLORIDE - SERUM 106 mmol/L (98-107); CREATININE - SERUM 0.9 mg/dL (0.6-1.3); GLUCOSE 84 mg/dL (74-106); POTASSIUM - SERUM 3.2 mmol/L (3.5-5.1); PROTEIN - SERUM 5.6 g/dL (6.4-8.2); SODIUM 142 mmol/L (136-145); UREA NITROGEN 15 mg/dL (7-18); eGFR NON AFRICAN AMERICAN > 90 mL/min (90-120)
[2018-08-21 09:21] VITALS: BP 117/76
[2018-08-21 11:35] VITALS: BP 121/90
[2018-08-21 12:20] LABS: BASOPHILS 0.2 % (0-2); EOSINOPHILS 1.7 % (0-7); HEMATOCRIT 34.2 % (42.0-54.0); HEMOGLOBIN 11.6 g/dL (13.5-17.5); IMMATURE GRANULOCYTES 1.7 % (0-5); LYMPHOCYTES 28.9 % (15-50); MCH 30.4 pg (26.0-34.0); MCHC 33.9 g/dL (31.0-37.0); MCV 89.5 fL (80.0-100.0); MEAN PLATELET VOLUME 10.3 fL (7.4-10.4); MONOCYTES 8.1 % (2-11); NEUTROPHILS 59.4 % (40-80); PLATELET COUNT 257 10x3/uL (130-400); RBC 3.82 10x6/uL (4.20-6.10); RDW 14.3 % (11.5-14.5); WBC 5.8 10x3/uL (4.8-10.8)
[2018-08-21 12:46] LABS: ALBUMIN 2.2 g/dL (3.4-5.0); ALKALINE PHOSPHATASE 181 U/L (46-116); ALT (SGPT) 73 U/L (10-68); BILIRUBIN - TOTAL 0.32 mg/dL (0.2-1.3); CALC OSMOLALITY 283 mosm/kg (275-300); CALCIUM 7.5 mg/dL (8.5-10.1); CARBON DIOXIDE 24.2 mmol/L (21.0-32.0); CHLORIDE - SERUM 108 mmol/L (98-107); CREATININE - SERUM 0.7 mg/dL (0.6-1.3); GLUCOSE 98 mg/dL (74-106); POTASSIUM - SERUM 3.6 mmol/L (3.5-5.1); PROTEIN - SERUM 4.9 g/dL (6.4-8.2); SODIUM 142 mmol/L (136-145); UREA NITROGEN 15 mg/dL (7-18); eGFR NON AFRICAN AMERICAN > 90 mL/min (90-120)
[2018-08-21 15:53] VITALS: BP 120/78
[2018-08-21 18:20] LABS: BASOPHILS 0.6 % (0-2); EOSINOPHILS 2.5 % (0-7); HEMATOCRIT 33.6 % (42.0-54.0); HEMOGLOBIN 11.2 g/dL (13.5-17.5); IMMATURE GRANULOCYTES 2.7 % (0-5); LYMPHOCYTES 24.6 % (15-50); MCH 30.5 pg (26.0-34.0); MCHC 33.3 g/dL (31.0-37.0); MEAN PLATELET VOLUME 10.4 fL (7.4-10.4); MONOCYTES 10.5 % (2-11); NEUTROPHILS 59.1 % (40-80); PLATELET COUNT 250 10x3/uL (130-400); RBC 3.67 10x6/uL (4.20-6.10); RDW 14.4 % (11.5-14.5); WBC 4.9 10x3/uL (4.8-10.8)
[2018-08-21 18:34] LABS: MCV 91.6 fL (80.0-100.0)
[2018-08-21 18:52] LABS: ALBUMIN 2.1 g/dL (3.4-5.0); ALKALINE PHOSPHATASE 166 U/L (46-116); ALT (SGPT) 83 U/L (10-68); BILIRUBIN - TOTAL 0.21 mg/dL (0.2-1.3); CALCIUM 7.4 mg/dL (8.5-10.1); CARBON DIOXIDE 24.2 mmol/L (21.0-32.0); CHLORIDE - SERUM 108 mmol/L (98-107); POTASSIUM - SERUM 3.9 mmol/L (3.5-5.1); PROTEIN - SERUM 4.7 g/dL (6.4-8.2); SODIUM 142 mmol/L (136-145); UREA NITROGEN 16 mg/dL (7-18)
[2018-08-21 19:03] LABS: CALC OSMOLALITY 289 mosm/kg (275-300); CREATININE - SERUM 0.9 mg/dL (0.6-1.3); GLUCOSE 203 mg/dL (74-106); eGFR NON AFRICAN AMERICAN > 90 mL/min (90-120)
[2018-08-21 20:56] VITALS: BP 125/84
[2018-08-22 00:46] VITALS: BP 125/83
[2018-08-22 05:12] VITALS: BP 130/80
[2018-08-22 06:32] LABS: BASOPHILS 0.3 % (0-2); EOSINOPHILS 2.9 % (0-7); HEMATOCRIT 34.9 % (42.0-54.0); HEMOGLOBIN 11.8 g/dL (13.5-17.5); IMMATURE GRANULOCYTES 2.6 % (0-5); LYMPHOCYTES 25.7 % (15-50); MCH 30.4 pg (26.0-34.0); MCHC 33.8 g/dL (31.0-37.0); MCV 89.9 fL (80.0-100.0); MEAN PLATELET VOLUME 10.6 fL (7.4-10.4); MONOCYTES 8.8 % (2-11); NEUTROPHILS 59.7 % (40-80); PLATELET COUNT 243 10x3/uL (130-400); RBC 3.88 10x6/uL (4.20-6.10); RDW 14.3 % (11.5-14.5); WBC 5.9 10x3/uL (4.8-10.8)
[2018-08-22 06:43] LABS: ALBUMIN 2.1 g/dL (3.4-5.0); ALKALINE PHOSPHATASE 165 U/L (46-116); ALT (SGPT) 83 U/L (10-68); BILIRUBIN - TOTAL 0.32 mg/dL (0.2-1.3); CALC OSMOLALITY 278 mosm/kg (275-300); CALCIUM 7.6 mg/dL (8.5-10.1); CARBON DIOXIDE 29.6 mmol/L (21.0-32.0); CHLORIDE - SERUM 104 mmol/L (98-107); CREATININE - SERUM 0.7 mg/dL (0.6-1.3); GLUCOSE 80 mg/dL (74-106); POTASSIUM - SERUM 3.2 mmol/L (3.5-5.1); PROTEIN - SERUM 5.2 g/dL (6.4-8.2); SODIUM 140 mmol/L (136-145); UREA NITROGEN 16 mg/dL (7-18); eGFR NON AFRICAN AMERICAN > 90 mL/min (90-120)
[2018-08-22 08:11] VITALS: BP 116/74
[2018-08-22 14:00] VITALS: BP 113/74
[2018-08-22 20:47] VITALS: BP 102/68
[2018-08-23 00:52] VITALS: BP 127/76
[2018-08-23 05:08] VITALS: BP 122/85
[2018-08-23 07:02] LABS: BASOPHILS 0.8 % (0-2); EOSINOPHILS 2.7 % (0-7); HEMATOCRIT 35.6 % (42.0-54.0); IMMATURE GRANULOCYTES 4.1 % (0-5); LYMPHOCYTES 28.6 % (15-50); MCH 30.4 pg (26.0-34.0); MCHC 33.7 g/dL (31.0-37.0); MCV 90.1 fL (80.0-100.0); MONOCYTES 11.4 % (2-11); NEUTROPHILS 52.4 % (40-80); PLATELET COUNT 249 10x3/uL (130-400); RBC 3.95 10x6/uL (4.20-6.10); RDW 14.2 % (11.5-14.5); WBC 4.9 10x3/uL (4.8-10.8)
[2018-08-23 07:04] LABS: ALBUMIN 2.1 g/dL (3.4-5.0); ALKALINE PHOSPHATASE 184 U/L (46-116); ALT (SGPT) 77 U/L (10-68); BILIRUBIN - TOTAL 0.38 mg/dL (0.2-1.3); CALCIUM 7.7 mg/dL (8.5-10.1); CARBON DIOXIDE 26.7 mmol/L (21.0-32.0); CHLORIDE - SERUM 98 mmol/L (98-107); PROTEIN - SERUM 5.4 g/dL (6.4-8.2); SODIUM 134 mmol/L (136-145)
[2018-08-23 07:10] LABS: CALC OSMOLALITY 290 mosm/kg (275-300); POTASSIUM - SERUM 4.2 mmol/L (3.5-5.1); UREA NITROGEN 22 mg/dL (7-18); eGFR NON AFRICAN AMERICAN > 90 mL/min (90-120)
[2018-08-23 07:11] LABS: GLUCOSE 464 mg/dL (74-106)
[2018-08-23 08:46] VITALS: BP 121/78
[2018-08-23 13:47] VITALS: BP 108/74
[2018-08-23 16:35] VITALS: BP 109/73
--- NOTE | 2018-08-26 12:53 | MORECARE ---
CASE MANAGEMENT DISCHARGE SUMMARY PATIENT: STARR GARCIA UNIT: [id number] ADM DATE: 08/19/18 AGE: 33 : 89 SEX: M ROOM/BED: D.1205 AUTHOR: EDDIEDOC PHYSICIAN: REFERRING PHYSICIAN: JANNETH PÉREZ MD DATE OF SERVICE: 08/26/18 Discharge Plan Patient Name: STARR GARCIA Facility: [facility]:[place] : 1985 Planned Disposition: Home Anticipated Discharge Date: 08/22/18 Discharge Date: 08/23/2018 Expected LOS: 3 Initial Reviewer: [email or web address] Initial Review Date: 08/19/2018 Generated: 08/26/18 1:53 pm DCP- Discharge Planning Updated by [email or web address]: Arelis Barillas on 08/19/18 3:[address] Patient Name: STARR GARCIA Admission Status: ER Accout number: [id number] Admission Date: 08-19-2018 : 1985 Admission Diagnosis: Attending: JANNETH PÉREZ Current LOS: 1 Anticipated DC Date: 08-22-2018 Planned Disposition: Home Primary Insurance: MEDICAID [place] Discharge Planning Comments: CM met with patient to complete initial dc planning assessment. CM educated patient on the CM role and verbal consent given by patient to complete assessment. Patient lives at home with his mother. At discharge patient plans to return home and feels this is a safe discharge. CM discussed availability of home health, rehab services, and medical equipment. Patient is non compliant in his care and has frequent readmissions. Patient denied known discharge needs at this time. CM will continue to follow and will assist as needed with dc plans/needs. Silverware Supervisor: Arelis Barillas RN, [facility] DCPIA - Discharge Planning Initial Assessment Updated by [email or web address]: Arelis Barillas on 08/19/18 4:06 pm * Is the patient Alert and Oriented? Yes * How many steps to enter\exit or inside your home? * PCP Dr. Morales * Pharmacy [facility] * Preadmission Environment Home with Family * ADLs Independent * Equipment Glucometer * List name and contact numbers for known caregivers / representatives who currently or will assist patient after discharge: Diana Arriaga - mother - [phone] * Verbal permission to speak to the caregivers and representatives has been obtained from the patient. Yes * Community resources currently utilized None * Additional services required to return to the preadmission environment? No * Can the patient safely return to the preadmission environment? Yes * Has this patient been hospitalized within the prior 30 days at any hospital? Yes Last DP export: 08/19/18 3:11 p Patient Name: STARR GARCIA Page 19559 at 1253 All edits/amendments must be made on the electronic document DICTATION DATE: 08/26/18 1253 FIBER OPTIC SPLICER: PHANI 08/26/18 1253 RPT#: [id number] DC DATE:08/23/18 STATUS: DIS IN [facility] [address] [place] [address] END OF REPORT
== END 2018-08-23 17:29 | disposition home or self-care (01) | DRG 637 ==
LOC: D.ER 12:56 → D.EDHOLD 14:33 → D.ICU 15:51 → D.M3 08-20 18:21
PROVIDERS: Family Medicine; ADMIT Internal Medicine Nephrology
DX: E11.10 Type 2 diabetes mellitus with ketoacidosis without coma (principal); E43 Unspecified severe protein-calorie malnutrition; N17.9 Acute kidney failure, unspecified; Z68.1 Body mass index [BMI] 19.9 or less, adult; Z91.19 Patient's noncompliance with other medical treatment and regimen; D64.9 Anemia, unspecified